=== PATIENT | male | born 1945 | race Caucasian/White ===

== ENCOUNTER 2016-08-25 14:15 | Observation (INO) | payer MEDICARE ==
--- NOTE | 2016-08-25 14:56 | Emergency Department Record ---
History of Present Illness - General Chief complaint: Dehydration Stated complaint: DEHYDRATED,BLOOD COUNT LOW Time Seen by Provider: 08/25/16 14:53 Source: Patient Mode of Arrival: Ambulatory Limitations: No limitations - History of Present Illness Initial comments: The patient is here due to being called at home and told to go to the ER due to a HGB of 2.9. The patient has had about a week of generalized weakness. He has been having some problems swallowing also but that has been chronic. The patient did have an UGI last week that did demonstrate a normal esophagus. He denies any CP, SOB, or EVELIA but states he does not have any energy. 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 After reviewing his lab work yesterday his HGB was actually 8.9 which was normal for him. Complaint: Generalized weakness Onset/Timin -: Days(s) Location: Generalized Severity: Moderate Severity scale (1-10): 6 Consistency: Constant Improves with: None Worsens with: None Associated Symptoms: Loss of appetite, Nausea/vomiting - Reading Coma Scale Eye Response: (4) Open spontaneously Motor Response: (6) Obeys commands Verbal Response: (5) Oriented Reading Total: 15 - Related Data Home Medications Medication Instructions Recorded Confirmed Last Taken Aspirin [Ecotrin] 81 mg PO DAILY 07/05/14 08/25/16 08/24/16 Insulin Detemir [Levemir Flexpen] 20 units SQ QHS 07/05/14 08/25/16 08/24/16 Levothyroxine Sodium [Synthroid] 150 mcg PO DAILY 07/05/14 08/25/16 08/24/16 Ramipril [Altace] 10 mg PO BID 07/05/14 08/25/16 08/24/16 Simvastatin [Zocor] 80 mg PO DAILY 07/05/14 08/25/16 08/24/16 Nitroglycerin [Nitrostat] 0.4 mg SL ASDIR PRN 12/01/14 08/25/16 08/24/16 Pantoprazole Sodium [Protonix] 40 mg PO DAILY 12/01/14 08/25/16 08/24/16 Clopidogrel Bisulfate [Plavix] 75 mg PO DAILY 07/31/15 08/25/16 08/24/16 Ferrous Sulfate 325 mg PO TID 07/31/15 08/25/16 08/24/16 Hydrocortisone [Anusol-Hc] 1 applic TOP ASDIR 05/06/16 08/25/16 08/24/16 Metformin HCl 500 mg PO BID 08/25/16 08/25/16 08/24/16 Metoprolol Tartrate 25 mg PO BID 08/25/16 08/25/16 08/24/16 Previous Rx's Medication Instructions Recorded Polyethylene Glycol 3350 [Miralax] 1 packet PO DAILY #30 packet 04/30/16 Allergies Allergy/AdvReac Type Severity Reaction Status Date / Time No Known Drug Allergies Allergy Verified 08/25/16 14:52 Travel Screening - Travel/Exposure Within Last 30 Days Have you traveled within the last 30 days?: No Past Medical History - SOCIAL HISTORY Smoking Status: Former smoker Alcohol Use: None Drug Use: None - RESPIRATORY Hx Respiratory Disorders: No Comment:: some SOB in past - CARDIOVASCULAR Hx Cardio Disorders: Yes Hx Cardiac Cath: Yes (4 cardiac stents) Hx Chest Pain: Yes Hx Deep Vein Thrombosis: Yes (8 stents in BLE) Hx Heart Attack: Yes Hx Hypertension: Yes - NEURO Hx Neuro Disorders: Yes Hx Dizziness: Yes Hx Headaches: Yes - GI Hx GI Disorders: Yes Hx Reflux: Yes Comment:: constipation - Hx Genitourinary Disorders: No - ENDOCRINE Hx Endocrine Disorders: Yes Hx Diabetes: Yes Hx Thyroid Disease: Yes - MUSCULOSKELETAL Hx Musculoskeletal Disorders: No - PSYCH Hx Psych Problems: No - HEMATOLOGY/ONCOLOGY Hx Hematology/Oncology Disorders: Yes Hx Anemia: Yes (sees a Sole Rounding Machine Operator) Hx Blood Transfusions: Yes Hx Blood Transfusion Reaction: No Family Medical History Any Significant Family History?: Yes Hx Cancer: Mother Hx Diabetes: Mother Hx Heart Disease: Mother Hx HTN: Mother Physical Exam - General General Appearance: Alert, Oriented x3, Cooperative, No acute distress - Head Head exam: Atraumatic, Normocephalic, Normal inspection - Eye Eye exam: PERRL, EOMI. negative: Normal appearance (Pale conjuctiva.), Conjunctival injection - ENT Throat exam: Normal inspection. negative: Tonsillar erythema, Tonsillar exudate - Neck Neck exam: Normal inspection, Full ROM. negative: Tenderness - Respiratory Respiratory exam: Normal lung sounds bilaterally. negative: Respiratory distress - Cardiovascular Cardiovascular Exam: Regular rate, Normal rhythm, Normal heart sounds - GI/Abdominal GI/Abdominal exam: Soft, Normal bowel sounds. negative: Tenderness - Extremities Extremities exam: Normal inspection, Full ROM, Normal capillary refill. negative: Tenderness - Neurological Neurological exam: Alert, Normal gait, Oriented X3. negative: Abnormal gait, Motor sensory deficit - Skin Skin exam: Pallor (Mild (chronic)) Course Vital Signs 08/25/16 14:46 Temperature 98.8 F Pulse Rate 90 Respiratory 22 Rate Blood Pressure 98/57 Pulse Ox 100 - Reevaluation(s) Reevaluation #1: The patient is resting comfortably. After reviewing his lab work it appears the neutropenia is chronic along with the anemia and the patient has had an extensive evaluation for it at [facility]. The anemia does appear to be worse at this time so I do believe the patient needs a transfusion. I did consult with his Sole Rounding Machine Operator Dr. Lozoya and he believes the patient can stay here at [facility] for the blood transfusion. I then discussed the case with Dr. Rico and she accepts the patient to the hospital. 08/25/16 17:16 08/25/16 17:53 Medical Decision Making - Data Complexity MDM Data: Labs Ordered and/or Reviewed, X-Ray Ordered and/or Reviewed, EKG Ordered and/or Reviewed - Lab Data Result diagrams: 08/25/16 15:09 08/25/16 15:09 - EKG Data -: EKG Interpreted by Me EKG: No Acute Changes, Unchanged From Previous - Radiology Data Radiology results: Report reviewed (CXR: COPD, no acute changes.) Disposition Disposition: Admit Clinical Impression: Anemia Decision to Admit: Admit from ER Decision to Admit Date: 08/25/16 Decision to Admit Time: 17:17 Accepting Physician: Trisha Time Discussed w/Accepting Physician: 17:18 Time of Disposition: 17:18
[2016-08-25 15:22] LABS: HEMATOCRIT 23.6 % (42.0-52.0); HEMOGLOBIN 7.6 gm/dl (14.0-18.0); MEAN CELL VOLUME 91.1 fl (81-97); MEAN CORPUSCULAR HEMOGLOBIN 29.3 pg (27-33); MEAN CORPUSCULAR HGB CONC 32.2 g/dl (32-36); MEAN PLATELET VOLUME 9.4 fl (7.4-10.4); PLATELET COUNT 224 K/uL (130-400); RED BLOOD COUNT 2.59 M/uL (4.40-5.70); RED CELL DISTRIBUTION WIDTH 15.3 % (11.5-14.5)
[2016-08-25 15:32] LABS: WHITE BLOOD COUNT W/O DIFF 0.8 K/uL (4.2-12.2)
[2016-08-25 15:34] LABS: INR 1.27; PROTHROMBIN TIME (PATIENT) 14.3 SECONDS (9.5-12.1)
[2016-08-25 15:41] LABS: ALB/GLOB RATIO 0.9 (1.1-1.8); ALBUMIN 3.1 gm/dL (3.5-5.0); ALKALINE PHOSPHATASE 73 U/L (38-126); ALT/SGPT 27 U/L (21-72); ANION GAP 9.6 (7-16); AST/SGOT 14 U/L (17-59); BILIRUBIN,TOTAL 1.61 mg/dL (0.2-1.3); BLOOD UREA NITROGEN 17 mg/dL (9-20); CARBON DIOXIDE 18.4 mmol/L (22-30); CREATINE PHOSPHOKINASE < 20 U/L (55-170); CREATININE 0.9 mg/dL (0.66-1.25); EST GLOMERULAR FILTRATION RATE > 60 ml/min; GLUCOSE,RANDOM 155 mg/dL (70-110); TOTAL PROTEIN 6.7 gm/dL (6.3-8.2)
[2016-08-25 15:51] LABS: CKMB 0.5 ug/L (0-6)
[2016-08-25 15:52] LABS: TROPONIN I < 0.012 ng/mL (0.00-0.034)
[2016-08-25 16:19] LABS: URINE APPEARANCE CLEAR; URINE BILIRUBIN SMALL (NEGATIVE); URINE BLOOD NEGATIVE (NEGATIVE); URINE COLOR YELLOW; URINE GLUCOSE (UA) NEGATIVE (NEGATIVE); URINE KETONE NEGATIVE (NEGATIVE); URINE LEUKOCYTE ESTERASE NEGATIVE (NEGATIVE); URINE NITRITE NEGATIVE (NEGATIVE)
[2016-08-25 17:59] LABS: ABO GROUP O; ANTIBODY SCREEN NEGATIVE (NEGATIVE); RH TYPE POSITIVE
[2016-08-25] MEDS ORDERED: NITROGLYCERIN 0.4MG SL TABLET #25 BTL SL PRN (18:21)
[2016-08-25] MEDS ORDERED: ACETAMINOPHEN 500 MG TABLET PO PRN (18:21)
[2016-08-25 20:21] LABS: IMMED. SPIN CROSSMATCH COMPATIBLE
[2016-08-25 20:22] LABS: IMMED. SPIN CROSSMATCH COMPATIBLE
[2016-08-25] MEDS ORDERED: LEVEMIR FLEXTOUCH 100 UNIT/ML INSULIN PEN SQ SCH (22:00)
[2016-08-25] MEDS ORDERED: SIMVASTATIN 20 MG TABLET PO SCH (22:00)
[2016-08-25] MEDS ORDERED: RAMIPRIL 10 MG PO SCH (22:00)
[2016-08-25] MEDS: METOPROLOL TART 25 MG TABLET PO SCH (22:45)
[2016-08-25] MEDS: METFORMIN 500 MG TABLET PO SCH (22:45)
[2016-08-25] MEDS: FERROUS SULFATE 325 MG TAB PO SCH (22:46)
[2016-08-26 06:13] LABS: HEMATOCRIT 30.6 % (42.0-52.0); HEMOGLOBIN 10.2 gm/dl (14.0-18.0); MEAN CELL VOLUME 89.7 fl (81-97); MEAN CORPUSCULAR HEMOGLOBIN 29.9 pg (27-33); MEAN CORPUSCULAR HGB CONC 33.3 g/dl (32-36); MEAN PLATELET VOLUME 9.3 fl (7.4-10.4); PLATELET COUNT 245 K/uL (130-400); RED BLOOD COUNT 3.41 M/uL (4.40-5.70); RED CELL DISTRIBUTION WIDTH 14.5 % (11.5-14.5)
[2016-08-26 06:24] LABS: ANION GAP 7.6 (7-16); BLOOD UREA NITROGEN 18 mg/dL (9-20); CARBON DIOXIDE 20.4 mmol/L (22-30); CREATININE 0.9 mg/dL (0.66-1.25); EST GLOMERULAR FILTRATION RATE > 60 ml/min; GLUCOSE,RANDOM 69 mg/dL (70-110); WHITE BLOOD COUNT W/O DIFF 0.8 K/uL (4.2-12.2)
[2016-08-26] MEDS: METFORMIN 500 MG TABLET PO SCH (09:41)
[2016-08-26] MEDS: METOPROLOL TART 25 MG TABLET PO SCH (09:42)
[2016-08-26] MEDS: FERROUS SULFATE 325 MG TAB PO SCH (09:42)
[2016-08-26] MEDS ORDERED: PANTOPRAZOLE SODIUM 40 MG TABLET PO SCH (10:00)
[2016-08-26] MEDS ORDERED: ASPIRIN 81 MG TABEC PO SCH (10:00)
[2016-08-26] MEDS ORDERED: LEVOTHYROXINE SODIUM 150 MCG TABLET PO SCH (10:00)
[2016-08-26] MEDS ORDERED: SIMVASTATIN 80 MG PO SCH (10:00)
[2016-08-26] MEDS ORDERED: CLOPIDOGREL 75MG TABLET PO SCH (10:00)
[2016-08-26] MEDS ORDERED: RAMIPRIL 2.5 MG CAPSULE PO SCH ×2 (10:00→10:15)
--- NOTE | 2016-08-26 13:39 | History & Physical ---
History of Present Illness - Date of Service Date of Service for History & Physical: 08/26/16 - History of Present Illness Admitting Diagnosis: 1. Symptomatic anemia. History of Present Illness: 71 yo M with past medical history of pancytopenia presents with concerns for his hemoglobin to ED yesterday The patient is here due to being called at home and told to go to the ER due to a HGB of 2.9. The patient has had about a week of generalized weakness. He has been having some problems swallowing also but that has been chronic. The patient did have an UGI last week that did demonstrate a normal esophagus. He denies any CP, SOB, or EVELIA but states he does not have any energy. 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 After reviewing his lab work yesterday his HGB was actually 8.9 which was normal for him. Hx of triple bypass, 8 DVT, HTN, [place] w/ 4 cardiac stents, headaches, GERD, constipation, Diabetes, hypothyroidism, former smoker (50 years, quit 2014). PCP: [place] Dental Hygienist: [facility] [place] Today his HB is 10.2 (from 7.6 yesterday) after 2 units of blood. He is feeling much better. Laboratory Tests 08/25/16 08/26/16 15:09 06:05 Hgb 7.6 L 10.2 L Travel Screening - Travel/Exposure Within Last 30 Days Have you traveled within the last 30 days?: No Past Medical History - SOCIAL HISTORY Smoking Status: Former smoker Alcohol Use: None Drug Use: None - RESPIRATORY Hx Respiratory Disorders: No Comment:: some SOB in past - CARDIOVASCULAR Hx Cardio Disorders: Yes Hx Cardiac Cath: Yes (4 cardiac stents) Hx Chest Pain: Yes Hx Deep Vein Thrombosis: Yes (8 stents in BLE) Hx Heart Attack: Yes Hx Hypertension: Yes - NEURO Hx Neuro Disorders: Yes Hx Dizziness: Yes Hx Headaches: Yes - GI Hx GI Disorders: Yes Hx Reflux: Yes Comment:: constipation - Hx Genitourinary Disorders: No - ENDOCRINE Hx Endocrine Disorders: Yes Hx Diabetes: Yes Hx Thyroid Disease: Yes - MUSCULOSKELETAL Hx Musculoskeletal Disorders: No - PSYCH Hx Psych Problems: No Comment:: frustrated with not knowing where his blood is going - HEMATOLOGY/ONCOLOGY Hx Hematology/Oncology Disorders: Yes Hx Anemia: Yes (sees a Dental Hygienist) Hx Blood Transfusions: Yes Hx Blood Transfusion Reaction: No Family Medical History Any Significant Family History?: Yes Hx Cancer: Mother Hx Diabetes: Mother Hx Heart Disease: Mother Hx HTN: Mother H&P Meds/Allergies - Allergies Allergies: Allergies Allergy/AdvReac Type Severity Reaction Status Date / Time No Known Drug Allergies Allergy Verified 08/25/16 14:52 - Home Medications Home Medications Medication Instructions Recorded Confirmed Last Taken Aspirin [Ecotrin] 81 mg PO DAILY 07/05/14 08/25/16 08/24/16 Insulin Detemir [Levemir Flexpen] 20 units SQ QHS 07/05/14 08/25/16 08/24/16 Levothyroxine Sodium [Synthroid] 150 mcg PO DAILY 07/05/14 08/25/16 08/24/16 Ramipril [Altace] 10 mg PO BID 07/05/14 08/25/16 08/24/16 Simvastatin [Zocor] 80 mg PO DAILY 07/05/14 08/25/16 08/24/16 Nitroglycerin [Nitrostat] 0.4 mg SL ASDIR PRN 12/01/14 08/25/16 08/24/16 Pantoprazole Sodium [Protonix] 40 mg PO DAILY 12/01/14 08/25/16 08/24/16 Clopidogrel Bisulfate [Plavix] 75 mg PO DAILY 07/31/15 08/25/16 08/24/16 Ferrous Sulfate 325 mg PO TID 07/31/15 08/25/16 08/24/16 Hydrocortisone [Anusol-Hc] 1 applic TOP ASDIR 05/06/16 08/25/16 08/24/16 Metformin HCl 500 mg PO BID 08/25/16 08/25/16 08/24/16 Metoprolol Tartrate 25 mg PO BID 08/25/16 08/25/16 08/24/16 Previous Rx's Medication Instructions Recorded Polyethylene Glycol 3350 [Miralax] 1 packet PO DAILY #30 packet 04/30/16 - Active Medications Active Medications: Current Medications Acetaminophen (Tylenol 500mg Tab) 500 mg PO Q6H PRN PRN Reason: PAIN/TEMP Aspirin (Ecotrin (Ec)) 81 mg PO DAILY [facility] Last Admin: 08/26/16 12:24 Dose: 81 mg Clopidogrel Bisulfate (Plavix) 75 mg PO DAILY [facility] Last Admin: 08/26/16 12:24 Dose: 75 mg Ferrous Sulfate (Iron) 325 mg PO TID [facility] Last Admin: 08/26/16 09:42 Dose: 325 mg Insulin Detemir (Levemir Flextouch) 20 unit SQ QHS [facility] Last Admin: 08/25/16 22:43 Dose: 20 unit Levothyroxine Sodium (Synthroid) 150 mcg PO DAILYTHY [facility] Last Admin: 08/26/16 12:27 Dose: Not Given Metformin HCl (Glucophage Ir) 500 mg PO BID [facility] Last Admin: 08/26/16 09:41 Dose: 500 mg Metoprolol Tartrate (Lopressor) 25 mg PO BID [facility] Last Admin: 08/26/16 09:42 Dose: 25 mg Nitroglycerin (Nitrostat 0.4mg) 0.4 mg SL Q5MIN PRN PRN Reason: Chest Pain [facility] Ramipril (Altace) 10 mg PO BID [facility] Last Admin: 08/26/16 12:25 Dose: 10 mg Simvastatin (Zocor) 80 mg PO QHS [facility] Last Admin: 08/25/16 22:46 Dose: 80 mg Physical Exam - Vital Signs Vital Signs: Vital Signs - Last 24 Hrs Temp Pulse Resp BP BP Pulse Ox 08/26/16 11:42 87 18 131/63 100 08/26/16 09:00 12 08/26/16 05:40 99.5 F 88 18 103/57 98 08/25/16 21:00 88 16 08/25/16 20:30 99.7 F H 08/25/16 18:21 100.6 F H 91 H 18 106/54 97 08/25/16 18:01 100.6 F H 91 H 106/54 97 - General General Appearance: Alert, Oriented x3, Cooperative, No acute distress, Other ( cachectic) Limitations: No limitations - Head Head exam: Atraumatic, Normocephalic, Normal inspection - Eye Eye exam: PERRL, EOMI. negative: Normal appearance (Pale conjuctiva.), Conjunctival injection - ENT Throat exam: Normal inspection. negative: Tonsillar erythema, Tonsillar exudate - Neck Neck exam: Normal inspection, Full ROM. negative: Tenderness - Respiratory Respiratory exam: Normal lung sounds bilaterally. negative: Respiratory distress - Cardiovascular Cardiovascular Exam: Regular rate, Normal rhythm, Normal heart sounds - GI/Abdominal GI/Abdominal exam: Soft, Normal bowel sounds. negative: Tenderness - Extremities Extremities exam: Normal inspection, Full ROM, Normal capillary refill. negative: Tenderness - Neurological Neurological exam: Alert, Normal gait, Oriented X3. negative: Abnormal gait, Motor sensory deficit Results - Labs Result Diagrams: 08/26/16 06:05 08/26/16 06:05 Labs Last 24 Hours: Laboratory Results - last 24 hr 08/25/16 08/26/16 08/26/16 21:14 06:05 06:05 WBC 0.8 L* RBC 3.41 L Hgb 10.2 L Hct 30.6 L MCV 89.7 MCH 29.9 MCHC 33.3 RDW 14.5 Plt Count 245 MPV 9.3 Gran % Heel Attacher Neutrophils % 7.0 L Band Neutrophils % 2.0 Lymphocytes % 90.0 H Monocytes % 1.0 Eosinophils % 0.0 Basophils % 0.0 Sodium 127 L Potassium 4.3 Chloride 99 Carbon Dioxide 20.4 L Anion Gap 7.6 BUN 18 Creatinine 0.9 Estimated GFR > 60 POC Glucose 213 H Random Glucose 69 L Calcium 8.4 L 08/26/16 08/26/16 07:42 11:42 WBC RBC Hgb Hct MCV MCH MCHC RDW Plt Count MPV Gran % Neutrophils % Band Neutrophils % Lymphocytes % Monocytes % Eosinophils % Basophils % Sodium Potassium Chloride Carbon Dioxide Anion Gap BUN Creatinine Estimated GFR POC Glucose 62 L 80 Random Glucose Calcium VTE H&P Assessment - Risk for VTE Risk for VTE: Yes Risk Level: High Risk Assessment Date: 08/26/16 Risk Assessment Time: 13:50 VTE Orders Placed or Will Be Placed: No VTE Reason for No Prophylaxis: Not Indicated (discharge today) Plan - Detailed Diagnosis and Plan (1) Anemia Current Visit: Yes Status: Chronic Qualifiers: Other causes of anemia: antineoplastic chemotherapy Base Code: D64.9 - ANEMIA, UNSPECIFIED Priority: High Comment: 08/26/15- transfused two units of blood and patient feeling much better, plan to follow up with web interface developer/oncologist about pancytopenia
--- NOTE | 2016-08-26 13:56 | Discharge Summary ---
Providers Discharge Summary Date: 08/26/16 Date of admission: 08/25/16 17:45 Expected Date of Discharge: 08/26/16 Attending physician: ISABELA ARMSTRONG Primary care physician: LUCAS SNIDER D.O. Physical Exam - Vital Signs Vital Signs: Vital Signs - Last 24 Hrs Temp Pulse Resp BP BP Pulse Ox 08/26/16 11:42 87 18 131/63 100 08/26/16 09:00 12 08/26/16 05:40 99.5 F 88 18 103/57 98 08/25/16 21:00 88 16 08/25/16 20:30 99.7 F H 08/25/16 18:21 100.6 F H 91 H 18 106/54 97 08/25/16 18:01 100.6 F H 91 H 106/54 97 - General General Appearance: Alert, Oriented x3, Cooperative, No acute distress, Other ( cachectic) Limitations: No limitations - Head Head exam: Atraumatic, Normocephalic, Normal inspection - Eye Eye exam: PERRL, EOMI. negative: Normal appearance (Pale conjuctiva.), Conjunctival injection - ENT Throat exam: Normal inspection. negative: Tonsillar erythema, Tonsillar exudate - Neck Neck exam: Normal inspection, Full ROM. negative: Tenderness - Respiratory Respiratory exam: Normal lung sounds bilaterally. negative: Respiratory distress - Cardiovascular Cardiovascular Exam: Regular rate, Normal rhythm, Normal heart sounds - GI/Abdominal GI/Abdominal exam: Soft, Normal bowel sounds. negative: Tenderness - Extremities Extremities exam: Normal inspection, Full ROM, Normal capillary refill. negative: Tenderness - Neurological Neurological exam: Alert, Normal gait, Oriented X3. negative: Abnormal gait, Motor sensory deficit - Skin Skin exam: Pallor (Mild (chronic)) Hospitalization - Hospitalization Admission Diagnosis: 1. Symptomatic anemia. - Problem List/Discharge Diagnosis (1) Anemia Current Visit: Yes Status: Chronic Discharge Diagnosis: Other causes of anemia: antineoplastic chemotherapy Base Code: D64.9 - ANEMIA, UNSPECIFIED Comment: 08/26/15- admitted for observation to allow for transfusion of two units of blood and patient feeling much better, plan to follow up with plastic surgery specialist/oncologist about pancytopenia - Hospitalization Course Disposition: Home, Self-Care Hospital Course: 71 yo M with past medical history of pancytopenia presents with concerns for his hemoglobin to ED yesterday The patient is here due to being called at home and told to go to the ER due to a HGB of 2.9. The patient has had about a week of generalized weakness. He has been having some problems swallowing also but that has been chronic. The patient did have an UGI last week that did demonstrate a normal esophagus. He denies any CP, SOB, or EVELIA but states he does not have any energy. 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 After reviewing his lab work yesterday his HGB was actually 8.9 which was normal for him. Hx of triple bypass, 8 DVT, HTN, [place] w/ 4 cardiac stents, headaches, GERD, constipation, Diabetes, hypothyroidism, former smoker (50 years, quit 2014). PCP: [place] Direct Support Staff: [facility] Today his HB is 10.2 (from 7.6 yesterday) after 2 units of blood. He is feeling much better. Laboratory Tests 08/25/16 08/26/16 15:09 06:05 Hgb 7.6 L 10.2 L Abnormal Labs: Abnormal Lab Results 08/25/16 08/26/16 08/26/16 Range/Units 21:14 06:05 06:05 WBC 0.8 L* (4.2-12.2) K/uL RBC 3.41 L (4.40-5.70) M/uL Hgb 10.2 L (14.0-18.0) gm/dl Hct 30.6 L (42.0-52.0) % Neutrophils % 7.0 L (47-80) % Lymphocytes % 90.0 H (16-45) % Sodium 127 L (136-145) mmol/L Carbon Dioxide 20.4 L (22-30) mmol/L POC Glucose 213 H (70-110) mg/dL Random Glucose 69 L (70-110) mg/dL Calcium 8.4 L (8.5-10.1) mg/dL 08/26/16 Range/Units 07:42 WBC (4.2-12.2) K/uL RBC (4.40-5.70) M/uL Hgb (14.0-18.0) gm/dl Hct (42.0-52.0) % Neutrophils % (47-80) % Lymphocytes % (16-45) % Sodium (136-145) mmol/L Carbon Dioxide (22-30) mmol/L POC Glucose 62 L (70-110) mg/dL Random Glucose (70-110) mg/dL Calcium (8.5-10.1) mg/dL Discharge Medications - Discharge Medications Home Medications: Ambulatory Orders Aspirin [Ecotrin] 81 mg PO DAILY 07/05/14 [Last Taken 08/24/16] Insulin Detemir [Levemir Flexpen] 20 units SQ QHS 07/05/14 [Last Taken 08/24/16] Levothyroxine Sodium [Synthroid] 150 mcg PO DAILY 07/05/14 [Last Taken 08/24/16] Ramipril [Altace] 10 mg PO BID 07/05/14 [Last Taken 08/24/16] Simvastatin [Zocor] 80 mg PO DAILY 07/05/14 [Last Taken 08/24/16] Nitroglycerin [Nitrostat] 0.4 mg SL ASDIR PRN 12/01/14 [Last Taken 08/24/16] Pantoprazole Sodium [Protonix] 40 mg PO DAILY 12/01/14 [Last Taken 08/24/16] Clopidogrel Bisulfate [Plavix] 75 mg PO DAILY 07/31/15 [Last Taken 08/24/16] Ferrous Sulfate 325 mg PO TID 07/31/15 [Last Taken 08/24/16] Polyethylene Glycol 3350 [Miralax] 1 packet PO DAILY #30 packet 04/30/16 [Last Taken 08/24/16] Hydrocortisone [Anusol-Hc] 1 applic TOP ASDIR 05/06/16 [Last Taken 08/24/16] Metformin HCl 500 mg PO BID 08/25/16 [Last Taken 08/24/16] Metoprolol Tartrate 25 mg PO BID 08/25/16 [Last Taken 08/24/16] Acetaminophen [Tylenol 500Mg Tab] 500 mg PO Q6H PRN #0 tablet 08/26/16 [Last Taken Unknown] Ramipril [Altace] 10 mg PO BID capsule 08/26/16 [Last Taken Unknown] Simvastatin [Zocor] 80 mg PO QHS tablet 08/26/16 [Last Taken Unknown] Discharge Plan - Discharge Instructions Activity at Discharge: Increase Activity as Tolerated Diet at Discharge: Diabetic Diet
--- NOTE | 2016-08-28 07:41 | RADIOLOGY REPORT ---
EXAM: CHEST, TWO VIEWS HISTORY: ACUTE SHORTNESS OF BREATH. TECHNIQUE: Two views of the chest were provided along with the comparison study dated 07/15/14. FINDINGS: The cardiomediastinal silhouette is within normal limits for size and contour. The keli appear unremarkable. Calcified left hilar lymph nodes are again noted. Post sternotomy changes are identified. COPD changes are again noted. IMPRESSION: COPD CHANGES ARE IDENTIFIED. NO RADIOGRAPHIC EVIDENCE OF AN ACUTE INTRATHORACIC PROCESS. JOB NUMBER: [id number] [facility]
== END 2016-08-26 14:13 | disposition home or self-care (01) ==
LOC: ER 14:15 → MEDSURG 17:45
PROVIDERS: ADMIT Family Medicine; ATTEND Family Medicine
DX: D64.81 Anemia due to antineoplastic chemotherapy (principal); E11.9 Type 2 diabetes mellitus without complications; I10 Essential (primary) hypertension; E03.9 Hypothyroidism, unspecified
CPT/HCPCS: 99285 ×2; 82550; 85730; 85610; 82553; 84484; 80048; 80053; 36416 ×2; 82948 ×2; 81003; 84443; 85027 ×2; 86900; 86901; 86850; 71020; 93005; 93010; 36430; G0378 ×2; P9016; J3490; J1815; 99220

== ENCOUNTER 2016-10-07 17:53 | Emergency (ER) | payer MEDICARE ==
--- NOTE | 2016-10-07 18:27 | Emergency Department Record ---
History of Present Illness - General Chief complaint: Swelling of legs Stated complaint: SWELLING OF LOWER EXETRMITIES Time Seen by Provider: 10/07/16 18:05 Source: Patient Mode of Arrival: Ambulatory Limitations: No limitations - History of Present Illness Initial comments: 71 yo male presents to ED with a CC of lower extremity swelling bilaterally extending up to the groin region. Patient reports that he is unable to retract his foreskin to properly urinate. Patient reports that he was recently released from [facility] following an 8-day hospitalization for "bone marrow failure", and has been receiving (2) injections weekly (neupogen and procrit). Patient denies any fevers, chills, or recent illness symptoms. Patient denies history of CHF, thought does report previous bypass surgery and CAD. MD Complaint: Extremity swelling Onset/Timin -: Days(s) Location: Left, Right, Lower Leg, Other History of Same: No Improves with: Nothing Worsens with: Nothing Associated Symptoms: Denies other symptoms - Related Data Home Medications Medication Instructions Recorded Confirmed Last Taken Aspirin [Ecotrin] 81 mg PO DAILY 07/05/14 10/07/16 10/07/16 Insulin Detemir [Levemir Flexpen] 20 units SQ QHS 07/05/14 10/07/16 10/07/16 Levothyroxine Sodium [Synthroid] 150 mcg PO DAILY 07/05/14 10/07/16 10/07/16 Nitroglycerin [Nitrostat] 0.4 mg SL ASDIR PRN 12/01/14 10/07/16 10/07/16 Pantoprazole Sodium [Protonix] 40 mg PO DAILY 12/01/14 10/07/16 10/07/16 Clopidogrel Bisulfate [Plavix] 75 mg PO DAILY 07/31/15 10/07/16 10/07/16 Ferrous Sulfate 325 mg PO TID 07/31/15 10/07/16 10/07/16 Metoprolol Tartrate 25 mg PO BID 08/25/16 10/07/16 10/07/16 Previous Rx's Medication Instructions Recorded Polyethylene Glycol 3350 [Miralax] 1 packet PO DAILY #30 packet 04/30/16 Acetaminophen [Tylenol 500Mg Tab] 500 mg PO Q6H PRN #0 tablet 08/26/16 Ramipril [Altace] 10 mg PO BID capsule 08/26/16 Simvastatin [Zocor] 80 mg PO QHS tablet 08/26/16 Cephalexin [Keflex] 500 mg PO QID #27 cap 10/07/16 Furosemide [Lasix] 20 mg PO DAILY #20 tablet 10/07/16 Allergies Allergy/AdvReac Type Severity Reaction Status Date / Time No Known Drug Allergies Allergy Verified 10/07/16 17:58 Travel Screening - Travel/Exposure Within Last 30 Days Have you traveled within the last 30 days?: No - Travel/Exposure Within Last Year Have you traveled outside the [place] in the last year?: No - Additonal Travel Details Have you been exposed to anyone with a communicable illness?: No - Travel Symptoms Symptom Screening: None Review of Systems Constitutional: Denies: Chills, Fever, Malaise, Night sweats Eyes: Denies: Eye discharge, Eye pain ENT: Denies: Congestion, Ear pain, Epistaxis Respiratory: Denies: Cough, Dyspnea Cardiovascular: Reports: Edema. Denies: Chest pain, Dyspnea on exertion, Palpitations Endocrine: Denies: Fatigue, Heat or cold intolerance Gastrointestinal: Denies: Abdominal pain, Nausea, Vomiting Genitourinary: Reports: Other (penile/scrotal swelling). Denies: Hematuria, Incontinence, Retention Musculoskeletal: Denies: Arthralgia, Back pain, Gout, Joint swelling Skin: Denies: Bruising, Change in color Neurological: Denies: Abnormal gait, Confusion, Headache, Tingling Psychiatric: Denies: Anxiety Hematological/Lymphatic: Denies: Anemia, Blood Clots Past Medical History - SOCIAL HISTORY Smoking Status: Former smoker Alcohol Use: None Drug Use: None - RESPIRATORY Hx Respiratory Disorders: No Comment:: some SOB in past - CARDIOVASCULAR Hx Cardio Disorders: Yes Hx Cardiac Cath: Yes (4 cardiac stents) Hx Chest Pain: Yes Hx Deep Vein Thrombosis: Yes (8 stents in BLE) Hx Heart Attack: Yes Hx Hypertension: Yes - NEURO Hx Neuro Disorders: Yes Hx Dizziness: Yes Hx Headaches: Yes - GI Hx GI Disorders: Yes Hx Reflux: Yes Comment:: constipation - Hx Genitourinary Disorders: No - ENDOCRINE Hx Endocrine Disorders: Yes Hx Diabetes: Yes Hx Thyroid Disease: Yes - MUSCULOSKELETAL Hx Musculoskeletal Disorders: No - PSYCH Hx Psych Problems: No Comment:: frustrated with not knowing where his blood is going - HEMATOLOGY/ONCOLOGY Hx Hematology/Oncology Disorders: Yes 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 negative: Conjunctival injection, Periorbital swelling, Periorbital tenderness, Scleral icterus - ENT Ear exam: negative: Auricular hematoma, Auricular trauma Nasal Exam: negative: Active bleeding, Discharge, Dried blood, Foreign body, Sinus tenderness Mouth exam: negative: Drooling, Laceration, Muffled voice, Tongue elevation - Neck Neck exam: Normal inspection. negative: Meningismus, Tenderness - Respiratory Respiratory exam: Normal lung sounds bilaterally. negative: Respiratory distress, Rhonchi, Stridor, Wheezes - Cardiovascular Cardiovascular Exam: Regular rate, Normal rhythm, Normal heart sounds - GI/Abdominal GI/Abdominal exam: Soft. negative: Pulsatile mass, Rebound, Rigid, Tenderness - Rectal Rectal exam: Deferred - exam: Scrotal swelling, Other (penile edema). negative: Testicular tenderness - Extremities Extremities exam: Pedal edema. negative: Calf tenderness, Tenderness - Back Back exam: Denies: CVA tenderness (R), CVA tenderness (L) - Neurological Neurological exam: Alert, Normal gait, Oriented X3 - Psychiatric Psychiatric exam: Normal affect, Normal mood - Skin Skin exam: Normal color. negative: Abrasion Type of lesion: negative: abrasion Course Vital Signs 10/07/16 18:03 Temperature 98.4 F Pulse Rate 90 Respiratory 18 Rate Blood Pressure 149/74 Pulse Ox 98 - Reevaluation(s) Reevaluation #1: 10/07/16 19:09 Labs reviewed, Hgb 8.7, WBC 1.0. Platelets 268. Albumin 2.9. Labs reviewed from 09/17/16, WBC 1.0, Hgb 7.1, platelets 84K, Albumin 2.2. Labs have improved from previous. Will consult with the patient's reflow operator for further disposition. Reevaluation #2: 10/07/16 19:42 Case was discussed with Dr. Amaya (patient's oncologist), will defer to Dr. Penaloza however low-dose lasix and cooney catheterization seems very reasonable per his oncologist. Reevaluation #3: 10/07/16 19:46 Case was discussed with Dr. Penaloza, he is also in agreement with the plan for cooney catheterization and low-dose Lasix with instructions for follow-up in 3-[address] Penaloza. Patient and his SO are also in agreement with the plan of care as discussed. Medical Decision Making - Lab Data Result diagrams: 10/07/16 18:20 10/07/16 18:20 Disposition Disposition: Discharge Clinical Impression: Urinary retention, Bilateral lower extremity edema, Myelodysplastic syndrome, Pancytopenia UTI (urinary tract infection) Qualifiers: Urinary tract infection type: acute cystitis Hematuria presence: without hematuria Qualified Code(s): N30.00 - Acute cystitis without hematuria Disposition: Home, Self-Care Condition: (2) Stable Instructions: Leg Edema (ED) Additional Instructions: Return to ED if your symptoms worsen or if you have any concerns. Follow-up with Dr. Penaloza in 3-5 days as directed. Leave catheter in place until seen by Dr. Penaloza. Lasix as directed. Prescriptions: Cephalexin [Keflex] 500 mg PO QID #27 cap Furosemide [Lasix] 20 mg PO DAILY #20 tablet Forms: Patient Portal Access Time of Disposition: 19:50
[2016-10-07 18:34] LABS: HEMATOCRIT 26.3 % (42.0-52.0); HEMOGLOBIN 8.7 gm/dl (14.0-18.0); MEAN CELL VOLUME 96.7 fl (81-97); MEAN CORPUSCULAR HGB CONC 33.1 g/dl (32-36); MEAN PLATELET VOLUME 8.8 fl (7.4-10.4); PLATELET COUNT 268 K/uL (130-400); RED BLOOD COUNT 2.72 M/uL (4.40-5.70); RED CELL DISTRIBUTION WIDTH 22.7 % (11.5-14.5)
[2016-10-07 18:36] LABS: MEAN CORPUSCULAR HEMOGLOBIN 31.9 pg (27-33)
[2016-10-07 18:48] LABS: ALB/GLOB RATIO 0.8 (1.1-1.8); ALBUMIN 2.9 gm/dL (3.5-5.0); ALKALINE PHOSPHATASE 106 U/L (38-126); ALT/SGPT 21 U/L (21-72); ANION GAP 11.4 (7-16); AST/SGOT 16 U/L (17-59); BILIRUBIN,TOTAL 0.96 mg/dL (0.2-1.3); BLOOD UREA NITROGEN 11 mg/dL (9-20); CARBON DIOXIDE 24.6 mmol/L (22-30); CREATININE 0.9 mg/dL (0.66-1.25); EST GLOMERULAR FILTRATION RATE > 60 ml/min; GLUCOSE,RANDOM 162 mg/dL (70-110); TOTAL PROTEIN 6.6 gm/dL (6.3-8.2)
[2016-10-07 19:06] LABS: ANISOCYTOSIS 1+; HYPOCHROMIA 2+; MICROCYTOSIS 2+
[2016-10-07] MEDS ORDERED: FUROSEMIDE 20 MG TABLET PO ONE (19:45)
[2016-10-07 20:13] LABS: URINE APPEARANCE CLEAR; URINE BILIRUBIN SMALL (NEGATIVE); URINE BLOOD NEGATIVE (NEGATIVE); URINE COLOR YELLOW; URINE GLUCOSE (UA) NEGATIVE (NEGATIVE); URINE KETONE NEGATIVE (NEGATIVE); URINE LEUKOCYTE ESTERASE NEGATIVE (NEGATIVE); URINE NITRITE NEGATIVE (NEGATIVE)
[2016-10-07 20:26] LABS: URINE BACTERIA 3+
[2016-10-07 20:27] LABS: URINE MUCUS HEAVY
[2016-10-07] MEDS ORDERED: CEPHALEXIN 500 MG CAPSULE PO STA (20:30)
== END 2016-10-07 20:50 | disposition home or self-care (01) ==
LOC: ER 17:53
DX: N30.00 Acute cystitis without hematuria (principal); R33.9 Retention of urine, unspecified; R60.0 Localized edema; D61.818 Other pancytopenia; D46.9 Myelodysplastic syndrome, unspecified; I10 Essential (primary) hypertension; I25.2 Old myocardial infarction; I50.9 Heart failure, unspecified; Z87.891 Personal history of nicotine dependence
CPT/HCPCS: 80053; 81001; 83880; 85027; 99283; 99284

== ENCOUNTER 2016-10-22 14:21 | Emergency (ER) | payer MEDICARE ==
--- NOTE | 2016-10-22 15:02 | Emergency Department Record ---
History of Present Illness - General Chief complaint: Weakness Stated complaint: LOW BLOOD Time Seen by Provider: 10/22/16 14:56 Source: Patient, Family Mode of Arrival: Wheelchair Limitations: Other (sleepy) - History of Present Illness Initial comments: 71 yo male with myelodysplastic syndrome presents today with weakness, tired, sleepy, unable to ambulate at his baseline due to weakness. No fever. No falls. He has a long standing history of anemia and low WBC counts. No appetite today. He denies any pain. No chest pain or shortness of breath. No nausea, vomiting or diarrhea. MD Complaint: Generalized weakness Onset/Timin -: Days(s) Location: Generalized Consistency: Constant Improves with: None Worsens with: None Associated Symptoms: Denies other symptoms - Primrose Coma Scale Eye Response: (4) Open spontaneously Motor Response: (6) Obeys commands Verbal Response: (5) Oriented Mamta Total: 15 - Related Data Home Medications Medication Instructions Recorded Confirmed Last Taken Aspirin [Ecotrin] 81 mg PO DAILY 07/05/14 10/22/16 10/07/16 Insulin Detemir [Levemir Flexpen] 20 units SQ QHS 07/05/14 10/22/16 10/07/16 Levothyroxine Sodium [Synthroid] 150 mcg PO DAILY 07/05/14 10/22/16 10/07/16 Nitroglycerin [Nitrostat] 0.4 mg SL ASDIR PRN 12/01/14 10/22/16 10/07/16 Pantoprazole Sodium [Protonix] 40 mg PO DAILY 12/01/14 10/22/16 10/07/16 Clopidogrel Bisulfate [Plavix] 75 mg PO DAILY 07/31/15 10/22/16 10/07/16 Ferrous Sulfate 325 mg PO TID 07/31/15 10/22/16 10/07/16 Metoprolol Tartrate 25 mg PO BID 08/25/16 10/22/16 10/07/16 Previous Rx's Medication Instructions Recorded Polyethylene Glycol 3350 [Miralax] 1 packet PO DAILY #30 packet 04/30/16 Acetaminophen [Tylenol 500Mg Tab] 500 mg PO Q6H PRN #0 tablet 08/26/16 Ramipril [Altace] 10 mg PO BID capsule 08/26/16 Simvastatin [Zocor] 80 mg PO QHS tablet 08/26/16 Allergies Allergy/AdvReac Type Severity Reaction Status Date / Time No Known Drug Allergies Allergy Verified 10/07/16 17:58 Travel Screening - Travel/Exposure Within Last 30 Days Have you traveled within the last 30 days?: No Review of Systems Constitutional: Reports: Malaise, Weakness. Denies: Chills, Fever Eyes: Denies: Eye discharge, Eye pain, Photophobia, Vision change ENT: Reports: Throat pain. Denies: Congestion Respiratory: Denies: Cough, Dyspnea, Hemoptysis, Stridor, Wheezes Cardiovascular: Denies: Chest pain, Palpitations, Syncope Endocrine: Reports: Fatigue. Denies: Polydipsia, Polyuria Gastrointestinal: Denies: Abdominal pain, Diarrhea, Nausea, Vomiting Genitourinary: Denies: Dysuria, Frequency, Hematuria, Urgency Musculoskeletal: Denies: Arthralgia, Back pain, Joint swelling, Myalgia Skin: Denies: Bruising, Change in color, Rash Neurological: Reports: Weakness. Denies: Confusion, Headache, Numbness, Seizure , Tingling, Tremors, Vertigo Psychiatric: Denies: Anxiety Hematological/Lymphatic: Denies: Blood Clots, Easy bleeding, Easy bruising, Swollen glands Past Medical History - SOCIAL HISTORY Smoking Status: Former smoker - RESPIRATORY Hx Respiratory Disorders: No Comment:: some SOB in past - CARDIOVASCULAR Hx Cardio Disorders: Yes Hx Cardiac Cath: Yes (4 cardiac stents) Hx Chest Pain: Yes Hx Deep Vein Thrombosis: Yes (8 stents in BLE) Hx Heart Attack: Yes Hx Hypertension: Yes - NEURO Hx Neuro Disorders: Yes Hx Dizziness: Yes Hx Headaches: Yes - GI Hx GI Disorders: Yes Hx Reflux: Yes Comment:: constipation - Hx Genitourinary Disorders: No - ENDOCRINE Hx Endocrine Disorders: Yes Hx Diabetes: Yes Hx Thyroid Disease: Yes - MUSCULOSKELETAL Hx Musculoskeletal Disorders: No - PSYCH Hx Psych Problems: No Comment:: frustrated with not knowing where his blood is going - HEMATOLOGY/ONCOLOGY Hx Hematology/Oncology Disorders: Yes 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 negative: Conjunctival injection, Periorbital swelling, Scleral icterus - ENT ENT exam: Normal exam, Mucous membranes moist Ear exam: Normal external inspection. negative: External canal tenderness Nasal Exam: Normal inspection. negative: Discharge, Sinus tenderness Mouth exam: Normal external inspection, Tongue normal Teeth exam: Normal inspection. negative: Dental caries Throat exam: Tonsillar erythema - Neck Neck exam: Normal inspection, Full ROM. negative: Lymphadenopathy, Tenderness - Respiratory Respiratory exam: Normal lung sounds bilaterally. negative: Respiratory distress, Rhonchi, Stridor, Wheezes - Cardiovascular Cardiovascular Exam: Tachycardia. negative: Regular rate, Normal rhythm, Normal heart sounds - GI/Abdominal GI/Abdominal exam: Soft. negative: Distended, Tenderness - Rectal Rectal exam: Deferred - exam: Deferred - Extremities Extremities exam: Normal inspection, Full ROM, Normal capillary refill. negative: Pedal edema, Tenderness - Back Back exam: Reports: Normal inspection, Full ROM. Denies: Muscle spasm, Rash noted, Tenderness - Neurological Neurological exam: Alert, Normal gait, Oriented X3, Reflexes normal - Psychiatric Psychiatric exam: Flat affect - Skin Skin exam: Dry, Intact, Normal color, Warm Course Vital Signs 10/22/16 14:34 Temperature 103.0 F H Pulse Rate 124 H Respiratory 32 H Rate Blood Pressure 180/77 Pulse Ox 99 - Reevaluation(s) Reevaluation #1: Temp noted to be 103. 10/22/16 15:03 Reevaluation #2: the CBC was fully reported WBC is 0.7 with 41%N and 15% bands HGB is 7.6 which is unchanged from 10/18/16 Influenza is negative CXR demonstrated questionable atelectasis and less likely infiltrate LLL 10/22/16 16:47 Reevaluation #3: UA is negative for acute infection 10/22/16 17:59 Reevaluation #4: EKG 1824 sinus tach, rbbb, axis left, QTc 547 (prior 491), ST NS changes CW BBB. Comparison on 08/25/16 RBBB as well. 10/22/16 18:39 - Consultations Consultation #1: I JOHN Walker of [facility] He accepts the patient for transfer to [facility] [place] further evaluation and care Medical Decision Making - Lab Data Result diagrams: 10/22/16 14:55 10/22/16 14:54 Disposition Disposition: Transfer Clinical Impression: Neutropenic fever, Hyponatremia, Myelodysplastic syndrome, Pancytopenia Anemia Qualifiers: Other causes of anemia: antineoplastic chemotherapy Disposition: Acute Care Hospital Transfer Transfer To: [facility] Reason For Transfer: Neutropenic fever Accepting Physician: Aaron Time Discussed w/Accepting Physician: 18:18 Condition: (1) Good Forms: Patient Portal Access Time of Disposition: 18:18
[2016-10-22] MEDS ORDERED: ACETAMINOPHEN 500 MG TABLET PO ONE (15:03)
[2016-10-22] MEDS ORDERED: 0.9 % SODIUM CHLORIDE 1,000 ML BAG IV ONE (15:03)
[2016-10-22 15:44] LABS: HEMATOCRIT 24.2 % (42.0-52.0); HEMOGLOBIN 7.6 gm/dl (14.0-18.0); MEAN CELL VOLUME 104.3 fl (81-97); MEAN CORPUSCULAR HGB CONC 31.4 g/dl (32-36); MEAN PLATELET VOLUME 8.8 fl (7.4-10.4); PLATELET COUNT 186 K/uL (130-400); RED BLOOD COUNT 2.32 M/uL (4.40-5.70); RED CELL DISTRIBUTION WIDTH 18.6 % (11.5-14.5)
[2016-10-22 16:05] LABS: MEAN CORPUSCULAR HEMOGLOBIN 32.7 pg (27-33); WHITE BLOOD COUNT W/O DIFF 0.7 K/uL (4.2-12.2)
[2016-10-22 16:22] LABS: PLATELET ESTIMATE NORMAL (NORMAL)
[2016-10-22 16:24] LABS: ANISOCYTOSIS 2+
[2016-10-22 16:40] LABS: INFLUENZA A NEGATIVE (NEGATIVE); INFLUENZA B NEGATIVE (NEGATIVE)
[2016-10-22] MEDS ORDERED: CEFEPIME HCL 2 GM in 0.9 % SODIUM CHLORIDE 100ML 100 ML IVPB ONE (17:37)
[2016-10-22 17:45] LABS: INR 1.19; PARTIAL THROMBOPLASTIN TIME 36.3 SECONDS (24.5-39.1); PROTHROMBIN TIME (PATIENT) 13.4 SECONDS (9.5-12.1)
[2016-10-22 17:50] LABS: URINE APPEARANCE CLEAR; URINE BILIRUBIN NEGATIVE (NEGATIVE); URINE BLOOD SMALL (NEGATIVE); URINE COLOR YELLOW; URINE GLUCOSE (UA) NEGATIVE (NEGATIVE); URINE KETONE NEGATIVE (NEGATIVE); URINE LEUKOCYTE ESTERASE NEGATIVE (NEGATIVE); URINE NITRITE NEGATIVE (NEGATIVE)
[2016-10-22 17:53] LABS: URINE BACTERIA NONE SEEN; URINE EPITHELIAL CELLS 0 - 2 (FEW); URINE PROTEIN 300 mg/dL (NEGATIVE); URINE RBC 0 - 2 (NONE SEEN); URINE WBC 0 - 2 (0-2/hpf)
[2016-10-22 17:57] LABS: LACTIC ACID 2.1 mmol/L (0.7-2.1)
[2016-10-22] MEDS ORDERED: LEVOFLOXACIN/D5W 750 MG in DEXTROSE 1 BAG IVPB ONE (18:02)
[2016-10-22] MEDS ORDERED: PIPERACILLIN SODIUM/TAZOBACTAM 4.5 GM in 0.9 % SODIUM CHLORIDE 100ML 100 ML IVPB ONE (18:02)
[2016-10-22 18:27] LABS: ABO GROUP O; ANTIBODY SCREEN NEGATIVE (NEGATIVE); RH TYPE POSITIVE
[2016-10-22] MEDS ORDERED: POTASSIUM CHLORIDE 20 MEQ TABLET PO ONE (18:27)
[2016-10-22] MEDS ORDERED: METOPROLOL TART 25 MG TABLET PO ONE (19:17)
== END 2016-10-22 21:13 | disposition short-term general hospital (02) ==
LOC: ER 14:21
DX: D61.810 Antineoplastic chemotherapy induced pancytopenia (principal); D61.1 Drug-induced aplastic anemia; D46.9 Myelodysplastic syndrome, unspecified; D70.9 Neutropenia, unspecified; R50.81 Fever presenting with conditions classified elsewhere; T45.1X5A Adverse effect of antineoplastic and immunosuppressive drugs, initial encounter; E87.1 Hypo-osmolality and hyponatremia; D49.9 Neoplasm of unspecified behavior of unspecified site; Z79.4 Long term (current) use of insulin; I10 Essential (primary) hypertension; I25.2 Old myocardial infarction; Z87.891 Personal history of nicotine dependence
CPT/HCPCS: 96372; 99285 ×2; 83605; 85730; 85610; 80053; 81001; 87880; 87400; 85027; 86900; 86901; 86850; 71010; 93005; 93010; J1956; J2543; J7030

== ENCOUNTER 2017-02-06 19:40 | Emergency (ER) | payer MEDICARE ==
[2017-02-06 20:17] LABS: BASO % 0.2 % (0-6); GRAN % 76.4 % (47-80); HEMATOCRIT 31.4 % (42.0-52.0); LYMPH % 15.2 % (16-45); MEAN CELL VOLUME 96.6 fl (81-97); MEAN CORPUSCULAR HGB CONC 31.8 g/dl (32-36); MEAN PLATELET VOLUME 9.5 fl (7.4-10.4); MONO % 8.2 % (0-9); PLATELET COUNT 227 K/uL (130-400); RED BLOOD COUNT 3.25 M/uL (4.40-5.70); RED CELL DISTRIBUTION WIDTH 19.5 % (11.5-14.5); WHITE BLOOD COUNT W/O DIFF 4.2 K/uL (4.2-12.2)
[2017-02-06 20:18] LABS: MEAN CORPUSCULAR HEMOGLOBIN 30.7 pg (27-33)
[2017-02-06 20:26] LABS: ALB/GLOB RATIO 0.9 (1.1-1.8); ALBUMIN 3.3 gm/dL (3.5-5.0); ALKALINE PHOSPHATASE 79 U/L (38-126); ALT/SGPT 23 U/L (21-72); ANION GAP 8.2 (7-16); AST/SGOT 16 U/L (17-59); BLOOD UREA NITROGEN 19 mg/dL (9-20); CARBON DIOXIDE 26.8 mmol/L (22-30); CREATININE 0.9 mg/dL (0.66-1.25); EST GLOMERULAR FILTRATION RATE > 60 ml/min; GLUCOSE,RANDOM 182 mg/dL (70-110); TOTAL PROTEIN 6.9 gm/dL (6.3-8.2)
[2017-02-06] MEDS ORDERED: PROMETHAZINE HCL 25 MG/ML VIAL IV ONE (20:30)
[2017-02-06] MEDS ORDERED: 0.9 % SODIUM CHLORIDE 1,000 ML BAG IV ONE (20:30)
[2017-02-06 20:42] LABS: LIPASE 13 U/L (23-300)
[2017-02-06 20:55] LABS: TROPONIN I < 0.012 ng/mL (0.00-0.034)
[2017-02-06 21:48] LABS: URINE APPEARANCE SL CLOUDY; URINE BILIRUBIN SMALL (NEGATIVE); URINE BLOOD NEGATIVE (NEGATIVE); URINE COLOR BROWN; URINE GLUCOSE (UA) NEGATIVE (NEGATIVE); URINE KETONE NEGATIVE (NEGATIVE); URINE LEUKOCYTE ESTERASE NEGATIVE (NEGATIVE); URINE NITRITE NEGATIVE (NEGATIVE)
[2017-02-06 21:50] LABS: URINE PROTEIN 300 mg/dL (NEGATIVE)
--- NOTE | 2017-02-06 23:26 | Emergency Department Record ---
History of Present Illness - General Chief complaint: Vomiting Stated complaint: VOMITING Time Seen by Provider: 02/06/17 20:23 Source: Patient Mode of Arrival: Wheelchair Limitations: No limitations - History of Present Illness Initial comments: pt has been vomiting since last night multiple times and cant keep water down.. no d/c. had nomal bm today. pt has difuse pain. pt has had 50 lb wt loss in last 4 mos. pt has recently had egd, colonoscopy at [facility]. complaint: Abdominal pain, Nausea, Vomiting Onset/Timin -: Hour(s) Associated Abdominal Pain: No Radiation: None Quality: Other Consistency: Intermittent Improves with: None Worsens with: None Associated Symptoms: Denies other symptoms, Nausea/vomiting - Related Data Home Medications Medication Instructions Recorded Confirmed Last Taken Aspirin [Ecotrin] 81 mg PO DAILY 07/05/14 02/06/17 10/07/16 Insulin Detemir [Levemir Flexpen] 20 units SQ QHS 07/05/14 02/06/17 10/07/16 Levothyroxine Sodium [Synthroid] 150 mcg PO DAILY 07/05/14 02/06/17 10/07/16 Nitroglycerin [Nitrostat] 0.4 mg SL ASDIR PRN 12/01/14 02/06/17 10/07/16 Pantoprazole Sodium [Protonix] 40 mg PO DAILY 12/01/14 02/06/17 10/07/16 Clopidogrel Bisulfate [Plavix] 75 mg PO DAILY 07/31/15 02/06/17 10/07/16 Ferrous Sulfate 325 mg PO TID 07/31/15 02/06/17 10/07/16 Metoprolol Tartrate 25 mg PO BID 08/25/16 02/06/17 10/07/16 Previous Rx's Medication Instructions Recorded Polyethylene Glycol 3350 [Miralax] 1 packet PO DAILY #30 packet 04/30/16 Acetaminophen [Tylenol 500Mg Tab] 500 mg PO Q6H PRN #0 tablet 08/26/16 Ramipril [Altace] 10 mg PO BID capsule 08/26/16 Simvastatin [Zocor] 80 mg PO QHS tablet 08/26/16 Allergies Allergy/AdvReac Type Severity Reaction Status Date / Time No Known Drug Allergies Allergy Verified 10/07/16 17:58 Travel Screening - Travel/Exposure Within Last 30 Days Have you traveled within the last 30 days?: No - Travel/Exposure Within Last Year Have you traveled outside the [place] in the last year?: No - Additonal Travel Details Have you been exposed to anyone with a communicable illness?: No - Travel Symptoms Symptom Screening: None Review of Systems Reviewed: No additional complaints except as noted below Constitutional: Reports: As per HPI. Denies: Chills, Fever, Malaise, Night sweats, Weakness, Weight change Eyes: Reports: As per HPI. Denies: Eye discharge, Eye pain, Photophobia, Vision change ENT: Reports: As per HPI. Denies: Congestion, Dental pain, Ear pain, Epistaxis , Hearing loss, Throat pain Respiratory: Reports: As per HPI. Denies: Cough, Dyspnea, Hemoptysis, Stridor, Wheezes Cardiovascular: Reports: As per HPI. Denies: Arrhythmia, Chest pain, Dyspnea on exertion, Edema, Murmurs, Orthopnea, Palpitations, Paroxysmal nocturnal dyspnea, Rheumatic Fever, Syncope Endocrine: Reports: As per HPI. Denies: Fatigue, Heat or cold intolerance, Polydipsia, Polyuria Gastrointestinal: Reports: As per HPI. Denies: Abdominal pain, Constipation, Diarrhea, Hematemesis, Hematochezia, Melena, Nausea, Vomiting Genitourinary: Reports: As per HPI. Denies: Dysuria, Frequency, Hematuria, Incontinence, Retention, Testicular pain, Testicular mass, Urgency Musculoskeletal: Reports: As per HPI. Denies: Arthralgia, Back pain, Gout, Joint swelling, Myalgia, Neck pain Skin: Reports: As per HPI. Denies: Bruising, Change in color, Change in hair/ nails, Lesions, Pruritus, Rash Neurological: Reports: As per HPI. Denies: Abnormal gait, Confusion, Headache, Numbness, Paresthesias, Seizure, Tingling, Tremors, Vertigo, Weakness Psychiatric: Reports: As per HPI. Denies: Anxiety, Auditory hallucinations, Depression, Homicidal thoughts, Suicidal thoughts, Visual hallucinations Hematological/Lymphatic: Reports: As per HPI. Denies: Anemia, Blood Clots, Easy bleeding, Easy bruising, Swollen glands Past Medical History - SOCIAL HISTORY Smoking Status: Former smoker Alcohol Use: None Drug Use: None - RESPIRATORY Hx Respiratory Disorders: No Comment:: some SOB in past - CARDIOVASCULAR Hx Cardio Disorders: Yes Hx Cardiac Cath: Yes (4 cardiac stents) Hx Chest Pain: Yes Hx Deep Vein Thrombosis: Yes (8 stents in BLE) Hx Heart Attack: Yes Hx Hypertension: Yes - NEURO Hx Neuro Disorders: Yes Hx Dizziness: Yes Hx Headaches: Yes - GI Hx GI Disorders: Yes Hx Reflux: Yes Comment:: constipation - Hx Genitourinary Disorders: No - ENDOCRINE Hx Endocrine Disorders: Yes Hx Diabetes: Yes Hx Thyroid Disease: Yes - MUSCULOSKELETAL Hx Musculoskeletal Disorders: No - PSYCH Hx Psych Problems: No Comment:: frustrated with not knowing where his blood is going - HEMATOLOGY/ONCOLOGY Hx Hematology/Oncology Disorders: Yes Hx Anemia: Yes (sees a [employer]) Hx Blood Transfusions: Yes Hx Blood Transfusion Reaction: No Comment:: "MDS" Family Medical History Any Significant Family History?: Yes Hx Cancer: Mother Physical Exam - General General Appearance: Alert, Oriented x3, Cooperative, Mild distress, Other ( cachectic) - Head Head exam: Normal inspection - Eye Eye exam: Normal appearance, PERRL, EOMI Pupils: Normal accommodation - ENT ENT exam: Normal exam, Mucous membranes dry, Normal external ear exam, Normal orophraynx Ear exam: Normal external inspection. negative: External canal tenderness Nasal Exam: Normal inspection. negative: Discharge, Sinus tenderness Mouth exam: Normal external inspection, Tongue normal Teeth exam: Normal inspection. negative: Dental caries Throat exam: Normal inspection. negative: Tonsillar erythema, Tonsillar exudate - Neck Neck exam: Normal inspection, Full ROM. negative: Tenderness - Respiratory Respiratory exam: Normal lung sounds bilaterally. negative: Respiratory distress - Cardiovascular Cardiovascular Exam: Regular rate, Normal rhythm, Normal heart sounds - GI/Abdominal GI/Abdominal exam: Soft, Normal bowel sounds, Tenderness - Rectal Rectal exam: Deferred - exam: Deferred - Extremities Extremities exam: Normal inspection, Full ROM, Normal capillary refill. negative: Tenderness - Back Back exam: Reports: Normal inspection, Full ROM. Denies: Muscle spasm, Rash noted, Tenderness - Neurological Neurological exam: Alert, CN II-XII intact, Normal gait, Oriented X3 - Psychiatric Psychiatric exam: Normal affect, Normal mood - Skin Skin exam: Dry, Intact, Normal color, Warm Course Vital Signs 02/06/17 02/06/17 02/06/17 19:59 21:26 22:57 Temperature 98.5 F Pulse Rate 73 Pulse Rate [ 80 81 Pulse Ox Probe] Respiratory 20 20 20 Rate Blood Pressure 128/59 Blood Pressure 166/74 181/93 [Left Arm] Pulse Ox 100 98 99 - Reevaluation(s) Reevaluation #1: 02/06/17 23:31 ptstopped vomitng but then vomited water up Reevaluation #2: 02/07/17 00:47 pt feels better. he was able to keep water down Medical Decision Making - Management Options MDM Management: Additional Work-up Planned (e.g. ADM/Transfer/OP Study) - Data Complexity MDM Data: Labs Ordered and/or Reviewed, X-Ray Ordered and/or Reviewed, EKG Ordered and/or Reviewed - Lab Data Result diagrams: 02/06/17 20:00 02/06/17 20:00 Lab Results 02/06/17 02/06/17 02/06/17 Range/Units 20:00 20:00 20:00 WBC 4.2 (4.2-12.2) K/uL Corrected WBC RBC 3.25 L (4.40-5.70) M/uL Hgb 10.0 L (14.0-18.0) gm/dl Hct 31.4 L (42.0-52.0) % MCV 96.6 (81-97) fl MCH 30.7 (27-33) pg MCHC 31.8 L (32-36) g/dl RDW 19.5 H (11.5-14.5) % Plt Count 227 (130-400) K/uL MPV 9.5 (7.4-10.4) fl Gran % 76.4 (47-80) % Lymphocytes % 15.2 L (16-45) % Monocytes % 8.2 (0-9) % Eosinophils % 0.0 (0-6) % Basophils % 0.2 (0-6) % Sodium 134 L (136-145) mmol/L Potassium 4.4 (3.5-5.1) mmol/L Chloride 99 (98-107) mmol/L Carbon Dioxide 26.8 (22-30) mmol/L Anion Gap 8.2 (7-16) BUN 19 (9-20) mg/dL Creatinine 0.9 (0.66-1.25) mg/dL Estimated GFR > 60 ml/min Random Glucose 182 H (70-110) mg/dL Calcium 8.6 (8.5-10.1) mg/dL Total Bilirubin 1.40 H (0.2-1.3) mg/dL AST 16 L (17-59) U/L ALT 23 (21-72) U/L Alkaline Phosphatase 79 (38-126) U/L Troponin I < 0.012 (0.00-0.034) ng/mL Total Protein 6.9 (6.3-8.2) gm/dL Albumin 3.3 L (3.5-5.0) gm/dL Globulin 3.6 (1.4-4.8) gm/dL Albumin/Globulin Ratio 0.9 L (1.1-1.8) Lipase 13 L (23-300) U/L Urine Color Urine Appearance Urine pH (5.0-8.0) Ur Specific [place] (1.002-1.030) Urine Protein (NEGATIVE) Urine Glucose (UA) (NEGATIVE) Urine Ketones (NEGATIVE) Urine Blood (NEGATIVE) Urine Nitrite (NEGATIVE) Urine Bilirubin (NEGATIVE) Urine Urobilinogen (0.20 - 1.00) E.U./dL Ur Leukocyte Esterase (NEGATIVE) Urine RBC Urine WBC 02/06/17 02/06/17 Range/Units 20:30 21:49 WBC Cancelled (4.2-12.2) K/uL Corrected WBC Cancelled RBC Cancelled (4.40-5.70) M/uL Hgb Cancelled (14.0-18.0) gm/dl Hct Cancelled (42.0-52.0) % MCV Cancelled (81-97) fl MCH Cancelled (27-33) pg MCHC Cancelled (32-36) g/dl RDW Cancelled (11.5-14.5) % Plt Count Cancelled (130-400) K/uL MPV Cancelled (7.4-10.4) fl Gran % Cancelled (47-80) % Lymphocytes % Cancelled (16-45) % Monocytes % Cancelled (0-9) % Eosinophils % Cancelled (0-6) % Basophils % Cancelled (0-6) % Sodium (136-145) mmol/L Potassium (3.5-5.1) mmol/L Chloride (98-107) mmol/L Carbon Dioxide (22-30) mmol/L Anion Gap (7-16) BUN (9-20) mg/dL Creatinine (0.66-1.25) mg/dL Estimated GFR ml/min Random Glucose (70-110) mg/dL Calcium (8.5-10.1) mg/dL Total Bilirubin (0.2-1.3) mg/dL AST (17-59) U/L ALT (21-72) U/L Alkaline Phosphatase (38-126) U/L Troponin I (0.00-0.034) ng/mL Total Protein (6.3-8.2) gm/dL Albumin (3.5-5.0) gm/dL Globulin (1.4-4.8) gm/dL Albumin/Globulin Ratio (1.1-1.8) Lipase (23-300) U/L Urine Color Brown H Urine Appearance Sl cloudy Urine pH 6.0 (5.0-8.0) Ur Specific [place] >= 1.030 (1.002-1.030) Urine Protein 300 mg/dl H (NEGATIVE) Urine Glucose (UA) Negative (NEGATIVE) Urine Ketones Negative (NEGATIVE) Urine Blood Negative (NEGATIVE) Urine Nitrite Negative (NEGATIVE) Urine Bilirubin Small H (NEGATIVE) Urine Urobilinogen 1.0 (0.20 - 1.00) E.U./dL Ur Leukocyte Esterase Negative (NEGATIVE) Urine RBC Not Reportable Urine WBC Not Reportable Disposition Disposition: Discharge Clinical Impression: Vomiting Qualifiers: Vomiting type: unspecified Vomiting Intractability: intractable Nausea presence : with nausea Qualified Code(s): R11.2 - Nausea with vomiting, unspecified Disposition: Home, Self-Care Condition: (1) Good Instructions: Acute Nausea and Vomiting (ED) Additional Instructions: follow up with family doctor. return sooner if worse. clear liquids only for 12 hours. Forms: Patient Portal Access
--- NOTE | 2017-02-08 10:39 | CT SCAN REPORT ---
EXAM: CT SCAN OF THE CHEST WITHOUT CONTRAST HISTORY: PATIENT HAS NAUSEA AND VOMITING. TECHNIQUE: Serial axial CT scan of the chest was performed at 3.75 mm intervals from the thoracic inlet to the dome of the diaphragm without the use of intravenous contrast. Comparison: CT scan of the abdomen and pelvis dated 05/06/[address] scan of the neck dated 07/31/15 is provided. FINDINGS: The thoracic inlet is unremarkable. Lung windows demonstrate scarring within the right lung apex which is unchanged with respect to the prior CT scan. Significant emphysematous changes are identified bilaterally. Calcified granuloma within the right upper lobe is unchanged with respect to the prior CT scan. Small pleural effusions are identified bilaterally. Mild passive atelectasis is noted within the bilateral lower lobes. The heart size and contour is within normal limits. Noncontrasted thoracic aorta is unremarkable. Several subcentimeter lymph nodes are identified within the mediastinum. These appear unchanged with respect to the prior CT scan. These may be reactive. The chest wall is unremarkable. Bone windows demonstrate no CT evidence of a fracture or dislocation of the visualized thoracic structures of the chest. Axial images through the upper abdomen demonstrate the visualized liver to be unremarkable. Splenomegaly is identified. There is diffuse thickening of the esophageal wall. These findings may be the result of chronic gastroesophageal reflux. Clinical correlation is recommended. IMPRESSION: 1. SMALL BILATERAL PLEURAL EFFUSIONS WITH MILD BILATERAL POSTERIOR LOWER LOBE PASSIVE ATELECTASIS. FOLLOW-UP PA AND LATERAL VIEW OF THE CHEST CAN BE OBTAINED UNTIL RESOLUTION OF FINDINGS. 2. DIFFUSE THICKENING OF THE ESOPHAGUS. THIS FINDING MAY BE THE RESULT OF GASTROESOPHAGEAL REFLUX. CLINICAL CORRELATION IS RECOMMENDED. JOB NUMBER: [id number] [facility]
--- NOTE | 2017-02-08 10:49 | CT SCAN REPORT ---
EXAM: CT SCAN OF THE ABDOMEN AND PELVIS WITHOUT CONTRAST HISTORY: PATIENT HAS NAUSEA AND VOMITING. TECHNIQUE: Serial axial CT scan of the abdomen and pelvis was performed at 3.75 mm intervals from the dome of the diaphragm down to the pubic symphysis without the use of intravenous contrast. Comparison: CT scan of the abdomen and pelvis dated 05/06/16 is provided. FINDINGS: Lung windows of the lung bases demonstrate small bilateral pleural effusions. Diffuse esophageal thickening of the distal esophagus is visualized. This finding may be the result of gastroesophageal reflux. Clinical correlation is recommended. The liver demonstrates normal size and contour. No suspicious hepatic lesions are identified. The spleen measures 17 cm in AP dimension. This is considered enlarged. The pancreas and bilateral adrenal glands are unremarkable. The gallbladder is distended and demonstrates multiple dependent gallstones. The gallbladder wall is thickened and there is a small amount of pericholecystic fluid. Clinical correlation for acute cholecystitis is recommended. There is no CT evidence of hydronephrosis or hydroureter. There is a 3.9 mm nonobstructive calculus within the inferior pole of the left kidney. Punctate 10 mm calculus is noted within the superior pole of the left kidney which is also nonobstructive. The contour and caliber of the noncontrasted abdominal aorta is within normal limits. There is no CT evidence of retroperitoneal, pelvic, or inguinal lymphadenopathy. The bowel gas pattern is nonspecific and nonobstructive. There is apparent thickening of the large bowel wall which I believe is related to underdistention. The urinary bladder is unremarkable. The prostate is unremarkable. A small amount of free intraperitoneal fluid is noted. There is no CT evidence of free intraperitoneal air. IMPRESSION: 1. SMALL BILATERAL PLEURAL EFFUSIONS. 2. SPLENOMEGALY. 3. THE GALLBLADDER WALL IS THICKENED WITH DEPENDENT GALLSTONES. A SMALL AMOUNT OF PERICHOLECYSTIC FLUID IS NOTED. THESE FINDINGS ARE SUSPICIOUS FOR ACUTE CHOLECYSTITIS. CLINICAL CORRELATION IS RECOMMENDED. IF THERE IS FURTHER CLINICAL CONCERN THEN NUCLEAR SCINTIGRAPHIC HIDA SCAN CAN BE OBTAINED FOR FURTHER EVALUATION. 4. SMALL AMOUNT OF FREE INTRAPERITONEAL FLUID. JOB NUMBER: [id number] [facility]
== END 2017-02-07 00:55 | disposition home or self-care (01) ==
LOC: ER 19:40
DX: R11.2 Nausea with vomiting, unspecified (principal); R10.9 Unspecified abdominal pain; D46.9 Myelodysplastic syndrome, unspecified; E11.9 Type 2 diabetes mellitus without complications; I10 Essential (primary) hypertension; I25.2 Old myocardial infarction; Z87.891 Personal history of nicotine dependence
CPT/HCPCS: 71250; 74176; 80053; 81001; 83690; 84484; 85025; 93005; 93010; 96361; 96374; 99284; J2550; J7030

== ENCOUNTER 2017-02-17 08:58 | Emergency (ER) | payer MEDICARE ==
--- NOTE | 2017-02-17 09:14 | Emergency Department Record ---
History of Present Illness - General Chief complaint: Hypogylcemia Stated complaint: BLOOD SUGAR ISSUES Time Seen by Provider: 02/17/17 09:08 Source: Patient Mode of Arrival: EMS Limitations: No limitations - History of Present Illness Initial comments: 72 yo male presents to ED for evaluation following a hypoglycemia episode. Patient reports taking his normal Levimir and Metformin last night around 23:00 , noted to be confused this morning, accu check 19. Patient was given D50, ate some eggs/cheese at home, glucose was initially 168 but then trended back down to 94 prompting visit to the ED. Patient reports that he currently feels find, denies recent illness, dizziness, or confusion, and states "I'm not hungry". MD Complaint: Generalized weakness Onset/Timin -: Hour(s) Location: Generalized Severity: Moderate Consistency: Constant Improves with: Other (glucose) Worsens with: None Associated Symptoms: Denies other symptoms - [place] Coma Scale Eye Response: (4) Open spontaneously Motor Response: (6) Obeys commands Verbal Response: (5) Oriented Mamta Total: 15 - Related Data Home Medications Medication Instructions Recorded Confirmed Last Taken Aspirin [Ecotrin] 81 mg PO DAILY 07/05/14 02/17/17 1 Day Ago ~02/16/17 Insulin Detemir [Levemir Flexpen] 20 units SQ QHS 07/05/14 02/17/17 1 Day Ago ~02/16/17 Levothyroxine Sodium [Synthroid] 150 mcg PO DAILY 07/05/14 02/17/17 1 Day Ago ~02/16/17 Nitroglycerin [Nitrostat] 0.4 mg SL ASDIR PRN 12/01/14 02/17/17 1 Day Ago ~02/16/17 Pantoprazole Sodium [Protonix] 40 mg PO DAILY 12/01/14 02/17/17 1 Day Ago ~02/16/17 Clopidogrel Bisulfate [Plavix] 75 mg PO DAILY 07/31/15 02/17/17 1 Day Ago ~02/16/17 Ferrous Sulfate 325 mg PO TID 07/31/15 02/17/17 1 Day Ago ~02/16/17 Metoprolol Tartrate 25 mg PO BID 08/25/16 02/17/17 1 Day Ago ~02/16/17 Previous Rx's Medication Instructions Recorded Polyethylene Glycol 3350 [Miralax] 1 packet PO DAILY #30 packet 04/30/16 Acetaminophen [Tylenol 500Mg Tab] 500 mg PO Q6H PRN #0 tablet 08/26/16 Ramipril [Altace] 10 mg PO BID capsule 08/26/16 Simvastatin [Zocor] 80 mg PO QHS tablet 08/26/16 Allergies Allergy/AdvReac Type Severity Reaction Status Date / Time No Known Drug Allergies Allergy Verified 02/17/17 09:11 Review of Systems Constitutional: Denies: Chills, Fever, Malaise, Night sweats Eyes: Denies: Eye discharge, Eye pain ENT: Denies: Congestion, Ear pain Respiratory: Denies: Cough, Dyspnea Cardiovascular: Denies: Chest pain, Dyspnea on exertion Endocrine: Denies: Fatigue, Heat or cold intolerance Gastrointestinal: Denies: Abdominal pain, Nausea, Vomiting Genitourinary: Denies: Incontinence, Retention Musculoskeletal: Denies: Arthralgia, Back pain Skin: Denies: Bruising, Change in color Neurological: Denies: Abnormal gait, Confusion, Headache, Seizure Psychiatric: Denies: Anxiety Hematological/Lymphatic: Denies: Anemia, Blood Clots Past Medical History - SOCIAL HISTORY Smoking Status: Former smoker Drug Use: None - RESPIRATORY Hx Respiratory Disorders: No Comment:: some SOB in past - CARDIOVASCULAR Hx Cardio Disorders: Yes Hx Cardiac Cath: Yes (4 cardiac stents) Hx Chest Pain: Yes Hx Deep Vein Thrombosis: Yes (8 stents in BLE) Hx Heart Attack: Yes Hx Hypertension: Yes - NEURO Hx Neuro Disorders: Yes Hx Dizziness: Yes Hx Headaches: Yes - GI Hx GI Disorders: Yes Hx Reflux: Yes Comment:: constipation - Hx Genitourinary Disorders: No - ENDOCRINE Hx Endocrine Disorders: Yes Hx Diabetes: Yes Hx Thyroid Disease: Yes - MUSCULOSKELETAL Hx Musculoskeletal Disorders: No - PSYCH Hx Psych Problems: No Comment:: frustrated with not knowing where his blood is going - HEMATOLOGY/ONCOLOGY Hx Hematology/Oncology Disorders: Yes 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 negative: Conjunctival injection, Periorbital swelling, Periorbital tenderness, Scleral icterus - ENT Ear exam: negative: Auricular hematoma, Auricular trauma Nasal Exam: negative: Active bleeding, Discharge, Dried blood, Foreign body Mouth exam: negative: Drooling, Laceration, Muffled voice, Tongue elevation - Neck Neck exam: Normal inspection. negative: Meningismus, Tenderness - Respiratory Respiratory exam: Normal lung sounds bilaterally. negative: Rales, Respiratory distress, Rhonchi, Stridor - Cardiovascular Cardiovascular Exam: Regular rate, Normal rhythm, Normal heart sounds - GI/Abdominal GI/Abdominal exam: Soft. negative: Rebound, Rigid, Tenderness - Rectal Rectal exam: Deferred - exam: Deferred - Extremities Extremities exam: Normal inspection. negative: Calf tenderness, Pedal edema, Tenderness - Back Back exam: Denies: CVA tenderness (R), CVA tenderness (L) - Neurological Neurological exam: Alert, Normal gait, Oriented X3 - Psychiatric Psychiatric exam: Normal affect, Normal mood - Skin Skin exam: Normal color. negative: Abrasion Type of lesion: negative: abrasion Course - Reevaluation(s) Reevaluation #1: 02/17/17 09:31 EKG: NSR 81 LAD, IVCD nonspecific ST-T wave changes Reevaluation #2: 02/17/17 10:13 Repeat Accucheck 70. Reevaluation #3: 02/17/17 10:22 Labs reviewed, Hgb 9.5, Glucose 53 (drawn prior to most recent accucheck). Labs are otherwise grossly unremarkable for an acute process. Will re-draw Accucheck in 10 minutes. CXR: Mild CHF with small bilateral pleural effusions 02/17/17 10:24 Reevaluation #4: 02/17/17 10:53 Repeat Accu check is 82, patient has not received any exogenous glucose while in the ED. I discussed observation overnight for hypothermia, patient reports that he is always cold and that his low temperature is not unusual for him. Patient reports that he is ready to go home with family at the bedside. Medical Decision Making - Lab Data Result diagrams: 02/17/17 09:40 02/17/17 09:40 Disposition Disposition: Discharge Clinical Impression: Hypoglycemia Disposition: Home, Self-Care Condition: (2) Stable Instructions: Hypoglycemia in a Person with Diabetes (ED) Additional Instructions: Return to ED if your symptoms worsen or if you have any concerns. Follow-up with your family doctor in 3-5 days as directed. Follow your doctor's instructions to reduce your Insulin intake at night. Forms: Patient Portal Access Time of Disposition: 10:56
[2017-02-17 09:49] LABS: HEMATOCRIT 30.7 % (42.0-52.0); HEMOGLOBIN 9.5 gm/dl (14.0-18.0); MEAN CORPUSCULAR HGB CONC 30.9 g/dl (32-36); MEAN PLATELET VOLUME 8.8 fl (7.4-10.4); PLATELET COUNT 288 K/uL (130-400); RED BLOOD COUNT 3.41 M/uL (4.40-5.70); RED CELL DISTRIBUTION WIDTH 16.6 % (11.5-14.5); WHITE BLOOD COUNT W/O DIFF 7.9 K/uL (4.2-12.2)
[2017-02-17 09:51] LABS: MEAN CORPUSCULAR HEMOGLOBIN 27.8 pg (27-33)
[2017-02-17 10:03] LABS: ALB/GLOB RATIO 0.9 (1.1-1.8); ALBUMIN 3.4 gm/dL (3.5-5.0); ALKALINE PHOSPHATASE 120 U/L (38-126); ALT/SGPT 17 U/L (21-72); AST/SGOT 16 U/L (17-59); BLOOD UREA NITROGEN 20 mg/dL (9-20); EST GLOMERULAR FILTRATION RATE > 60 ml/min; GLUCOSE,RANDOM 53 mg/dL (70-110); TOTAL PROTEIN 7.4 gm/dL (6.3-8.2)
[2017-02-17 10:06] LABS: CREATINE PHOSPHOKINASE < 20 U/L (55-170)
[2017-02-17 10:15] LABS: CKMB 1.4 ug/L (0-6)
[2017-02-17 10:17] LABS: TROPONIN I < 0.012 ng/mL (0.00-0.034)
--- NOTE | 2017-02-18 22:32 | RADIOLOGY REPORT ---
EXAM: CHEST 2 VIEWS HISTORY: COUGH. HYPOTHERMIA. TECHNIQUE: AP and lateral upright views of the chest were obtained. COMPARISON: 10/22/16. FINDINGS: The patient is status post median sternotomy. The heart is normal in size. There is pulmonary vascular congestion and diffuse interstitial edema, which has increased when compared to the prior study consistent with CHF. There are small bilateral pleural effusions. The lungs are hyperinflated consistent with underlying COPD. No acute osseous abnormalities are identified. IMPRESSION: 1. CHF AND SMALL BILATERAL PLEURAL EFFUSIONS. 2. COPD. JOB NUMBER: [id number] [facility]
== END 2017-02-17 11:10 | disposition home or self-care (01) ==
LOC: ER 08:58
DX: E11.649 Type 2 diabetes mellitus with hypoglycemia without coma (principal); R41.0 Disorientation, unspecified; R53.1 Weakness; T68.XXXA Hypothermia, initial encounter; R05 Cough; D46.9 Myelodysplastic syndrome, unspecified; Z79.4 Long term (current) use of insulin; I10 Essential (primary) hypertension; I25.2 Old myocardial infarction; I50.9 Heart failure, unspecified; J44.9 Chronic obstructive pulmonary disease, unspecified
CPT/HCPCS: 36416; 71020; 80053; 82550; 82553; 82948; 83605; 84484; 85027; 93005; 93010

== ENCOUNTER 2017-03-03 15:33 | Emergency (ER) | payer MEDICARE ==
[2017-03-03] MEDS ORDERED: EYE IRRIGATION SOLU. (SOD BOR/BORIC AC/H20/NACL) 118ML BTL OPTH ONE (15:52)
[2017-03-03] MEDS ORDERED: PROPARACAINE HCL OPTH 15ML BTL OPTH ONE (15:53)
--- NOTE | 2017-03-03 18:49 | Emergency Department Record ---
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 his flushed w contact solution the intermittantly flushed with water through out the day. eye now has discharge chief complaint: Eye pain, Eye redness, Vision change -: Hour(s) Onset Description: Sudden Location: Right eye Place: Home If Injury: Chemical exposure Severity: Moderate Severity scale (1-10): 3 If Pain, Quality: Aching Consistency: Constant Context: Contact lens use - Related Data Visual acuity (L) = 20/: 100 Visual acuity (R) = 20/: 100 With correction: No (wears cont) Hx Tetanus Toxoid Vaccination: Yes Year of Tetanus Vaccination: 2012 Home Medications Medication Instructions Recorded Confirmed Last Taken Aspirin [Ecotrin] 81 mg PO DAILY 07/05/14 02/17/17 1 Day Ago ~02/16/17 Insulin Detemir [Levemir Flexpen] 20 units SQ QHS 07/05/14 02/17/17 1 Day Ago ~02/16/17 Levothyroxine Sodium [Synthroid] 150 mcg PO DAILY 07/05/14 02/17/17 1 Day Ago ~02/16/17 Nitroglycerin [Nitrostat] 0.4 mg SL ASDIR PRN 12/01/14 02/17/17 1 Day Ago ~02/16/17 Pantoprazole Sodium [Protonix] 40 mg PO DAILY 12/01/14 02/17/17 1 Day Ago ~02/16/17 Clopidogrel Bisulfate [Plavix] 75 mg PO DAILY 07/31/15 02/17/17 1 Day Ago ~02/16/17 Ferrous Sulfate 325 mg PO TID 07/31/15 02/17/17 1 Day Ago ~02/16/17 Metoprolol Tartrate 25 mg PO BID 08/25/16 02/17/17 1 Day Ago ~02/16/17 Previous Rx's Medication Instructions Recorded Polyethylene Glycol 3350 [Miralax] 1 packet PO DAILY #30 packet 04/30/16 Acetaminophen [Tylenol 500Mg Tab] 500 mg PO Q6H PRN #0 tablet 08/26/16 Ramipril [Altace] 10 mg PO BID capsule 08/26/16 Simvastatin [Zocor] 80 mg PO QHS tablet 08/26/16 Neomycin/Polymyxin B/Dexametha 3.5 gm OP QID #1 oint...g. 03/03/17 [Maxitrol Eye Ointment] Allergies Allergy/AdvReac Type Severity Reaction Status Date / Time No Known Drug Allergies Allergy Verified 02/17/17 09:11 Travel Screening - Travel/Exposure Within Last 30 Days Have you traveled within the last 30 days?: No - Travel/Exposure Within Last Year Have you traveled outside the [place] in the last year?: No - Additonal Travel Details Have you been exposed to anyone with a communicable illness?: No - Travel Symptoms Symptom Screening: None Review of Systems Reviewed: No additional complaints except as noted below Constitutional: Reports: As per HPI. Denies: Chills, Fever, Malaise, Night sweats, Weakness, Weight change Eyes: Reports: As per HPI. Denies: Eye discharge, Eye pain, Photophobia, Vision change ENT: Reports: As per HPI. Denies: Congestion, Dental pain, Ear pain, Epistaxis , Hearing loss, Throat pain Respiratory: Reports: As per HPI. Denies: Cough, Dyspnea, Hemoptysis, Stridor, Wheezes Cardiovascular: Reports: As per HPI. Denies: Arrhythmia, Chest pain, Dyspnea on exertion, Edema, Murmurs, Orthopnea, Palpitations, Paroxysmal nocturnal dyspnea, Rheumatic Fever, Syncope Endocrine: Reports: As per HPI. Denies: Fatigue, Heat or cold intolerance, Polydipsia, Polyuria Gastrointestinal: Reports: As per HPI. Denies: Abdominal pain, Constipation, Diarrhea, Hematemesis, Hematochezia, Melena, Nausea, Vomiting Genitourinary: Reports: As per HPI. Denies: Dysuria, Frequency, Hematuria, Incontinence, Retention, Testicular pain, Testicular mass, Urgency Musculoskeletal: Reports: As per HPI. Denies: Arthralgia, Back pain, Gout, Joint swelling, Myalgia, Neck pain Skin: Reports: As per HPI. Denies: Bruising, Change in color, Change in hair/ nails, Lesions, Pruritus, Rash Neurological: Reports: As per HPI. Denies: Abnormal gait, Confusion, Headache, Numbness, Paresthesias, Seizure, Tingling, Tremors, Vertigo, Weakness Psychiatric: Reports: As per HPI. Denies: Anxiety, Auditory hallucinations, Depression, Homicidal thoughts, Suicidal thoughts, Visual hallucinations Hematological/Lymphatic: Reports: As per HPI. Denies: Anemia, Blood Clots, Easy bleeding, Easy bruising, Swollen glands Past Medical History - SOCIAL HISTORY Smoking Status: Former smoker Alcohol Use: None Drug Use: None - RESPIRATORY Hx Respiratory Disorders: No Comment:: some SOB in past - CARDIOVASCULAR Hx Cardio Disorders: Yes Hx Cardiac Cath: Yes (4 cardiac stents) Hx Chest Pain: Yes Hx Deep Vein Thrombosis: Yes (8 stents in BLE) Hx Heart Attack: Yes Hx Hypertension: Yes - NEURO Hx Neuro Disorders: Yes Hx Dizziness: Yes Hx Headaches: Yes - GI Hx GI Disorders: Yes Hx Reflux: Yes Comment:: constipation - Hx Genitourinary Disorders: No - ENDOCRINE Hx Endocrine Disorders: Yes Hx Diabetes: Yes Hx Thyroid Disease: Yes - MUSCULOSKELETAL Hx Musculoskeletal Disorders: No - PSYCH Hx Psych Problems: No Comment:: frustrated with not knowing where his blood is going - HEMATOLOGY/ONCOLOGY Hx Hematology/Oncology Disorders: Yes 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) Hx Blood Transfusions: Yes Hx Blood Transfusion Reaction: No Comment:: "MDS" Family Medical History Any Significant Family History?: Yes Hx Cancer: Mother Physical Exam - General General Appearance: Alert, Oriented x3, Cooperative, Mild distress - Head Head exam: Normal inspection - Eye Eye exam: Normal appearance, PERRL, Conjunctival injection, EOMI, Other ( discharge from eye, conjunctival swelling) Pupils: Normal accommodation With correction: No (wears cont) Image of Eyes: 1 - corneal abrasion w flourscein uptake - ENT ENT exam: Normal exam, Mucous membranes moist, Normal external ear exam, Normal orophraynx Ear exam: Normal external inspection. negative: External canal tenderness Nasal Exam: Normal inspection. negative: Discharge, Sinus tenderness Mouth exam: Normal external inspection, Tongue normal Teeth exam: Normal inspection. negative: Dental caries Throat exam: Normal inspection. negative: Tonsillar erythema, Tonsillar exudate - Neck Neck exam: Normal inspection, Full ROM. negative: Tenderness - Respiratory Respiratory exam: Normal lung sounds bilaterally. negative: Respiratory distress - Cardiovascular Cardiovascular Exam: Regular rate, Normal rhythm, Normal heart sounds - GI/Abdominal GI/Abdominal exam: Soft, Normal bowel sounds. negative: Tenderness - Rectal Rectal exam: Deferred - exam: Deferred - Extremities Extremities exam: Normal inspection, Full ROM, Normal capillary refill. negative: Tenderness - Back Back exam: Reports: Normal inspection, Full ROM. Denies: Muscle spasm, Rash noted, Tenderness - Neurological Neurological exam: Alert, Normal gait, Oriented X3, Reflexes normal - Psychiatric Psychiatric exam: Normal affect, Normal mood - Skin Skin exam: Dry, Intact, Normal color, Warm Course Vital Signs 03/03/17 15:47 Temperature 98.1 F Pulse Rate [ 79 Pulse Ox Probe] Respiratory 20 Rate Blood Pressure 147/61 [Left Arm] Pulse Ox 99 - Reevaluation(s) Reevaluation #1: 03/03/17 18:52 poison control called. they stated ph is 5.8. dr vasquez paged Reevaluation #2: 03/03/17 19:07 d/w dr vasquez who will see pt sunday if not better. plan of action d/w dr vasquez w his suggestions Disposition Disposition: Discharge Clinical Impression: Chemical exposure of eye Disposition: Home, Self-Care Condition: (1) Good Instructions: Chemical Eye Ray (ED), Corneal Abrasion (ED) Additional Instructions: follow up with dr vasquez if not better on sunday. return sooner if worse. leave patch on tonight only. maxitrol 4 times a day. motrin with food if needed Prescriptions: Neomycin/Polymyxin B/Dexametha [Maxitrol Eye Ointment] 3.5 gm OP QID #1 oint...g. Referrals: CHECO VASQUEZ [MEDICAL DOCTOR] - Forms: Patient Portal Access Quality - Quality Measures Quality Measures: N/A - Blood Pressure Screening Blood Pressure Classification: Hypertensive Reading Systolic Measurement: 147 Diastolic Measurement: 61 Screening for High Blood Pressure: < First Hypertensive BP, F/U Documented > [ G8950] First Hypertensive Follow-up Interventions: Follow-up with rescreen GT 1 day and LT 4 weeks., Referral to alternative/primary care provider.
[2017-03-03] MEDS ORDERED: CYCLOPENTOLATE HCL OPTH PRN (19:04)
[2017-03-03] MEDS ORDERED: HYDROCODONE/APAP 5/325MG TABLET PO ONE (19:09)
[2017-03-03] MEDS ORDERED: NEOMYCIN/POLY./DEXAM OPTH OINT OPTH SCH (19:15)
[2017-03-03] MEDS ORDERED: NEO/POLY B/DEXAMETH 5ML SUSP EACH EYE ONE (19:20)
[2017-03-03] MEDS ORDERED: CYCLOPENTOLATE HCL OPTH ONE (19:20)
== END 2017-03-03 19:36 | disposition home or self-care (01) ==
LOC: ER 15:33
DX: T60.8X1A Toxic effect of other pesticides, accidental (unintentional), initial encounter (principal); T26.61XA Corrosion of cornea and conjunctival sac, right eye, initial encounter; H57.11 Ocular pain, right eye; Y92.009 Unspecified place in unspecified non-institutional (private) residence as the place of occurrence of the external cause; D46.20 Refractory anemia with excess of blasts, unspecified; D46.9 Myelodysplastic syndrome, unspecified; D70.9 Neutropenia, unspecified
CPT/HCPCS: 99283 ×2; Q5101; 96372

== ENCOUNTER 2017-03-23 09:34 | Emergency (ER) | payer MEDICARE ==
[2017-03-23] MEDS ORDERED: ONDANSETRON HCL IV 4 MG/2 ML VIAL IVP ONE (10:09)
[2017-03-23 10:25] LABS: HEMATOCRIT 40.3 % (42.0-52.0); HEMOGLOBIN 12.6 gm/dl (14.0-18.0); MEAN CELL VOLUME 86.7 fl (81-97); MEAN CORPUSCULAR HGB CONC 31.3 g/dl (32-36); MEAN PLATELET VOLUME 9.8 fl (7.4-10.4); PLATELET COUNT 207 K/uL (130-400); RED BLOOD COUNT 4.65 M/uL (4.40-5.70); RED CELL DISTRIBUTION WIDTH 17.2 % (11.5-14.5); WHITE BLOOD COUNT W/O DIFF 3.2 K/uL (4.2-12.2)
--- NOTE | 2017-03-23 10:34 | Emergency Department Record ---
History of Present Illness - General Chief complaint: Vomiting Stated complaint: VOMITING/WEAKNESS Time Seen by Provider: 03/23/17 09:59 Source: Patient Mode of Arrival: Wheelchair Limitations: No limitations - History of Present Illness Initial comments: pt comes in for ap epigastric and vomiting. he denies any problems w his liver in the past. complaint: Nausea, Vomiting Onset/Timin -: Hour(s) Description of Vomiting: Watery, Other Location: Epigastric Severity: Moderate Severity scale (1-10): 6 Quality: Sharp Consistency: Constant Improves with: None Worsens with: Eating Context: Other Associated Symptoms: Weakness - Related Data Home Medications Medication Instructions Recorded Confirmed Last Taken Aspirin [Ecotrin] 81 mg PO DAILY 07/05/14 02/17/17 1 Day Ago ~02/16/17 Insulin Detemir [Levemir Flexpen] 20 units SQ QHS 07/05/14 02/17/17 1 Day Ago ~02/16/17 Levothyroxine Sodium [Synthroid] 150 mcg PO DAILY 07/05/14 02/17/17 1 Day Ago ~02/16/17 Nitroglycerin [Nitrostat] 0.4 mg SL ASDIR PRN 12/01/14 02/17/17 1 Day Ago ~02/16/17 Pantoprazole Sodium [Protonix] 40 mg PO DAILY 12/01/14 02/17/17 1 Day Ago ~02/16/17 Clopidogrel Bisulfate [Plavix] 75 mg PO DAILY 07/31/15 02/17/17 1 Day Ago ~02/16/17 Ferrous Sulfate 325 mg PO TID 07/31/15 02/17/17 1 Day Ago ~02/16/17 Metoprolol Tartrate 25 mg PO BID 08/25/16 02/17/17 1 Day Ago ~02/16/17 Previous Rx's Medication Instructions Recorded Polyethylene Glycol 3350 [Miralax] 1 packet PO DAILY #30 packet 04/30/16 Acetaminophen [Tylenol 500Mg Tab] 500 mg PO Q6H PRN #0 tablet 08/26/16 Ramipril [Altace] 10 mg PO BID capsule 08/26/16 Simvastatin [Zocor] 80 mg PO QHS tablet 08/26/16 Neomycin/Polymyxin B/Dexametha 3.5 gm OP QID #1 oint...g. 03/03/17 [Maxitrol Eye Ointment] Allergies Allergy/AdvReac Type Severity Reaction Status Date / Time No Known Drug Allergies Allergy Verified 03/23/17 09:44 Travel Screening - Travel/Exposure Within Last 30 Days Have you traveled within the last 30 days?: No - Travel/Exposure Within Last Year Have you traveled outside the [place] in the last year?: No - Additonal Travel Details Have you been exposed to anyone with a communicable illness?: No - Travel Symptoms Symptom Screening: None Review of Systems Reviewed: No additional complaints except as noted below Constitutional: Reports: As per HPI. Denies: Chills, Fever, Malaise, Night sweats, Weakness, Weight change Eyes: Reports: As per HPI. Denies: Eye discharge, Eye pain, Photophobia, Vision change ENT: Reports: As per HPI. Denies: Congestion, Dental pain, Ear pain, Epistaxis , Hearing loss, Throat pain Respiratory: Reports: As per HPI. Denies: Cough, Dyspnea, Hemoptysis, Stridor, Wheezes Cardiovascular: Reports: As per HPI. Denies: Arrhythmia, Chest pain, Dyspnea on exertion, Edema, Murmurs, Orthopnea, Palpitations, Paroxysmal nocturnal dyspnea, Rheumatic Fever, Syncope Endocrine: Reports: As per HPI. Denies: Fatigue, Heat or cold intolerance, Polydipsia, Polyuria Gastrointestinal: Reports: As per HPI. Denies: Abdominal pain, Constipation, Diarrhea, Hematemesis, Hematochezia, Melena, Nausea, Vomiting Genitourinary: Reports: As per HPI. Denies: Dysuria, Frequency, Hematuria, Incontinence, Retention, Testicular pain, Testicular mass, Urgency Musculoskeletal: Reports: As per HPI. Denies: Arthralgia, Back pain, Gout, Joint swelling, Myalgia, Neck pain Skin: Reports: As per HPI. Denies: Bruising, Change in color, Change in hair/ nails, Lesions, Pruritus, Rash Neurological: Reports: As per HPI. Denies: Abnormal gait, Confusion, Headache, Numbness, Paresthesias, Seizure, Tingling, Tremors, Vertigo, Weakness Psychiatric: Reports: As per HPI. Denies: Anxiety, Auditory hallucinations, Depression, Homicidal thoughts, Suicidal thoughts, Visual hallucinations Hematological/Lymphatic: Reports: As per HPI. Denies: Anemia, Blood Clots, Easy bleeding, Easy bruising, Swollen glands Past Medical History - SOCIAL HISTORY Smoking Status: Former smoker Alcohol Use: None Drug Use: None - RESPIRATORY Hx Respiratory Disorders: No Comment:: some SOB in past - CARDIOVASCULAR Hx Cardio Disorders: Yes Hx Cardiac Cath: Yes (4 cardiac stents) Hx Chest Pain: Yes Hx Deep Vein Thrombosis: Yes (8 stents in BLE) Hx Heart Attack: Yes Hx Hypertension: Yes - NEURO Hx Neuro Disorders: Yes Hx Dizziness: Yes Hx Headaches: Yes - GI Hx GI Disorders: Yes Hx Reflux: Yes Comment:: constipation - Hx Genitourinary Disorders: No - ENDOCRINE Hx Endocrine Disorders: Yes Hx Diabetes: Yes Hx Thyroid Disease: Yes - MUSCULOSKELETAL Hx Musculoskeletal Disorders: No - PSYCH Hx Psych Problems: No Comment:: frustrated with not knowing where his blood is going - HEMATOLOGY/ONCOLOGY Hx Hematology/Oncology Disorders: Yes 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 negative: External canal tenderness Nasal Exam: Normal inspection. negative: Discharge, Sinus tenderness Mouth exam: Normal external inspection, Tongue normal Teeth exam: Normal inspection. negative: Dental caries Throat exam: Normal inspection. negative: Tonsillar erythema, Tonsillar exudate - Neck Neck exam: Normal inspection, Full ROM. negative: Tenderness - Respiratory Respiratory exam: Normal lung sounds bilaterally. negative: Respiratory distress - Cardiovascular Cardiovascular Exam: Regular rate, Normal rhythm, Normal heart sounds - GI/Abdominal GI/Abdominal exam: Soft, Normal bowel sounds, Tenderness - Rectal Rectal exam: Deferred - exam: Deferred - Extremities Extremities exam: Normal inspection, Full ROM, Normal capillary refill. negative: Tenderness - Back Back exam: Reports: Normal inspection, Full ROM. Denies: Muscle spasm, Rash noted, Tenderness - Neurological Neurological exam: Alert, CN II-XII intact, Normal gait, Oriented X3 - Psychiatric Psychiatric exam: Normal affect, Normal mood - Skin Skin exam: Dry, Intact, Normal color, Warm, Other (juandice) Course Vital Signs 03/23/17 09:45 Temperature 97.7 F Pulse Rate 65 Respiratory 18 Rate Blood Pressure 174/71 Pulse Ox 100 - Reevaluation(s) Reevaluation #1: 03/23/17 13:08 d/w dr jose Medical Decision Making - Lab Data Result diagrams: 03/23/17 09:50 03/23/17 09:50 Lab Results 03/23/17 Range/Units 09:50 WBC 3.2 L (4.2-12.2) K/uL RBC 4.65 (4.40-5.70) M/uL Hgb 12.6 L (14.0-18.0) gm/dl Hct 40.3 L (42.0-52.0) % MCV 86.7 (81-97) fl MCH 27.0 (27-33) pg MCHC 31.3 L (32-36) g/dl RDW 17.2 H (11.5-14.5) % Plt Count 207 (130-400) K/uL MPV 9.8 (7.4-10.4) fl Eosinophils % Not Reportable Basophils % Not Reportable Disposition Disposition: Transfer Clinical Impression: Hyperbilirubinemia Cholecystitis with cholelithiasis Qualifiers: Cholelithiasis location: gallbladder and bile duct Cholecystitis acuity: acute Biliary obstruction: with biliary obstruction Qualified Code(s): K80.63 - Calculus of gallbladder and bile duct with acute cholecystitis with obstruction Pancreatitis Qualifiers: Chronicity: acute Pancreatitis type: biliary Acute pancreatitis complication: unspecified Qualified Code(s): K85.10 - Biliary acute pancreatitis without necrosis or infection Disposition: Acute Care Hospital Transfer Transfer To: [facility] Reason For Transfer: needs surgeon and ercp Accepting Physician: rebeca Time Discussed w/Accepting Physician: 13:12 Forms: Patient Portal Access Quality - Quality Measures Quality Measures: N/A - Blood Pressure Screening Blood Pressure Classification: Hypertensive Reading Systolic Measurement: 174 Diastolic Measurement: 71 Screening for High Blood Pressure: < First Hypertensive BP, F/U Documented > [ G8950] First Hypertensive Follow-up Interventions: Follow-up with rescreen GT 1 day and LT 4 weeks.
[2017-03-23 10:40] LABS: ALB/GLOB RATIO 0.9 (1.1-1.8); ALBUMIN 3.8 gm/dL (3.5-5.0); ALKALINE PHOSPHATASE 517 U/L (38-126); ALT/SGPT 184 U/L (21-72); ANION GAP 13.5 (7-16); AST/SGOT 137 U/L (17-59); BLOOD UREA NITROGEN 21 mg/dL (9-20); CARBON DIOXIDE 19.5 mmol/L (22-30); CREATININE 1.2 mg/dL (0.66-1.25); EST GLOMERULAR FILTRATION RATE > 60 ml/min; GLUCOSE,RANDOM 180 mg/dL (70-110); TOTAL PROTEIN 7.9 gm/dL (6.3-8.2)
[2017-03-23 10:43] LABS: PLATELET ESTIMATE NORMAL (NORMAL)
[2017-03-23 10:51] LABS: AMMONIA < 8.7 umol/L (9-30)
[2017-03-23 11:00] LABS: LIPASE 6814 U/L (23-300)
[2017-03-23] MEDS ORDERED: ZARXIO 300 MCG/0.5 ML SQ ONE (13:15)
--- NOTE | 2017-03-24 16:52 | CT SCAN REPORT ---
EXAM: CT SCAN ABDOMEN/PELVIS WO CONTRAST HISTORY: THE PATIENT IS VERY JAUNDICE. ABDOMINAL PAIN. ELEVATED LIVER ENZYMES. TECHNIQUE: Axial CT scan of the abdomen and pelvis performed without oral or IV contrast. COMPARISON: CT abdomen and pelvis dated 02/06/17. FINDINGS: Upper scans demonstrate bilateral pleural effusions, slightly larger on the right and essentially unchanged on the left compared with the prior study. Apparent cholelithiasis as previously reported. Somewhat thick-walled appearance of the gallbladder. Blurring in the margin of the gallbladder as well. These findings are all similar to before and acute cholecystitis cannot be excluded. However, there is also ascites present and some hazy increased density throughout much of the mesentery, which somewhat limits evaluation for similar findings around the gallbladder itself. Nonobstructing calculi within the left kidney, also present previously. No hydronephrosis or hydroureter seen on either side with no definite ureteral calculus on either side and no bladder calculus evident. Some mild prostate calcification is present. Evaluation of the bowel and viscera is very limited without oral or IV contrast. Given this limitation, no definite hepatic, or splenic mass evident. splenomegaly is again noted in the spleen appearing essentially unchanged in size from before, again measuring about 17 cm in AP diameter. No definite adrenal, pancreatic, or renal mass identified. Heavy calcification of the abdominal aorta and iliacs, as before. No definite appendicitis identified. No free intraperitoneal air identified. IMPRESSION: 1. APPARENT CHOLELITHIASIS WITH ADDITIONAL FINDINGS RAISING THE POSSIBILITY OF ACUTE CHOLECYSTITIS. SIMILAR FINDINGS SEEN PREVIOUSLY ON 02/06/17. 2. SPLENOMEGALY, BEFORE. 3. ASCITES IS SEEN TODAY, ALSO PRESENT PREVIOUSLY AND HAVING CHANGED RELATIVELY LITTLE IN THE INTERVAL. HAZY INCREASED DENSITY IN MUCH OF THE MESENTERY WELL SOMEWHAT LIMITING EVALUATION OF THESE FINDINGS AROUND THE GALLBLADDER ITSELF, DESCRIBED ABOVE. 4. BILATERAL PLEURAL EFFUSIONS, SLIGHTLY INCREASED ON THE RIGHT AND ESSENTIALLY UNCHANGED ON THE LEFT COMPARED WITH THE PRIOR STUDY. JOB NUMBER: [id number] [id number]
== END 2017-03-23 13:48 | disposition short-term general hospital (02) ==
LOC: ER 09:34
DX: K80.63 Calculus of gallbladder and bile duct with acute cholecystitis with obstruction (principal); K85.10 Biliary acute pancreatitis without necrosis or infection; E80.6 Other disorders of bilirubin metabolism; R53.1 Weakness; R11.2 Nausea with vomiting, unspecified; D46.20 Refractory anemia with excess of blasts, unspecified; D46.9 Myelodysplastic syndrome, unspecified
CPT/HCPCS: 99285 ×2; 96374; 96372; 83605; 83690; 82140; 80053; 85027; 74176; J2405; Q5101

== ENCOUNTER 2017-05-31 12:20 | Emergency (ER) | payer MEDICARE ==
[2017-05-31 14:29] LABS: URINE APPEARANCE CLEAR; URINE BILIRUBIN NEGATIVE (NEGATIVE); URINE BLOOD MODERATE (NEGATIVE); URINE COLOR YELLOW; URINE GLUCOSE (UA) NEGATIVE (NEGATIVE); URINE KETONE NEGATIVE (NEGATIVE); URINE LEUKOCYTE ESTERASE NEGATIVE (NEGATIVE); URINE NITRITE NEGATIVE (NEGATIVE); URINE UROBILINOGEN 0.2 E.U./dL (0.20 - 1.00)
--- NOTE | 2017-05-31 14:33 | Emergency Department Record ---
History of Present Illness - General Chief complaint: Edema Stated complaint: SWELLING ALL OVER Time Seen by Provider: 05/31/17 13:47 Source: Patient Mode of Arrival: Wheelchair Limitations: No limitations - History of Present Illness Initial comments: The patient is here due to swelling first in his hands R>L, then now his feet for about a month. He also may have had some lip and face swelling today but that is now gone. His visiting nurse did come to the home today and told him to go to the ER for the swelling. There has been no EVELIA, CP, fever, SOB, or AP. The patient has a hx of MDS and Neutropenia and does get shots to increase his WBC weekly. He also did not take his BP medicines today. MD Complaint: Other Onset/Timin -: Days(s) Location: Bilateral, Ankle, Hand History of Same: Yes Worsens with: Exertion Associated Symptoms: Arthralgias - Related Data Previous Rx's Medication Instructions Recorded Polyethylene Glycol 3350 [Miralax] 1 packet PO DAILY #30 packet 04/30/16 Acetaminophen [Tylenol 500Mg Tab] 500 mg PO Q6H PRN #0 tablet 08/26/16 Ramipril [Altace] 10 mg PO BID capsule 08/26/16 Simvastatin [Zocor] 80 mg PO QHS tablet 08/26/16 Neomycin/Polymyxin B/Dexametha 3.5 gm OP QID #1 oint...g. 03/03/17 [Maxitrol Eye Ointment] Furosemide [Lasix] 20 mg PO DAILY #5 tablet 05/31/17 Allergies Allergy/AdvReac Type Severity Reaction Status Date / Time No Known Drug Allergies Allergy Verified 03/23/17 09:44 Travel Screening - Travel/Exposure Within Last 30 Days Have you traveled within the last 30 days?: No - Travel/Exposure Within Last Year Have you traveled outside the [place] in the last year?: No - Additonal Travel Details Have you been exposed to anyone with a communicable illness?: No - Travel Symptoms Symptom Screening: Joint & Muscle Aches, Weakness, Fatigue Review of Systems Constitutional: Denies: Chills, Fever Eyes: Denies: Eye discharge ENT: Denies: Congestion Respiratory: Denies: Cough, Dyspnea Past Medical History - SOCIAL HISTORY Smoking Status: Former smoker Alcohol Use: None Drug Use: None - RESPIRATORY Hx Respiratory Disorders: No Comment:: some SOB in past - CARDIOVASCULAR Hx Cardio Disorders: Yes Hx Cardiac Cath: Yes (4 cardiac stents) Hx Chest Pain: Yes Hx Deep Vein Thrombosis: Yes (8 stents in BLE) Hx Heart Attack: Yes Hx Hypertension: Yes - NEURO Hx Neuro Disorders: Yes Hx Dizziness: Yes Hx Headaches: Yes - GI Hx GI Disorders: Yes Hx Reflux: Yes Comment:: constipation, possible iggy problems - Hx Genitourinary Disorders: No - ENDOCRINE Hx Endocrine Disorders: Yes Hx Diabetes: Yes Hx Thyroid Disease: Yes - MUSCULOSKELETAL Hx Musculoskeletal Disorders: No - PSYCH Hx Psych Problems: No Comment:: frustrated with not knowing where his blood is going - HEMATOLOGY/ONCOLOGY Hx Hematology/Oncology Disorders: Yes 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 negative: Tonsillar erythema, Tonsillar exudate - Neck Neck exam: Normal inspection, Full ROM. negative: Tenderness - Respiratory Respiratory exam: Normal lung sounds bilaterally. negative: Respiratory distress - Cardiovascular Cardiovascular Exam: Regular rate, Normal rhythm, Normal heart sounds - GI/Abdominal GI/Abdominal exam: Soft, Normal bowel sounds. negative: Tenderness - Extremities Extremities exam: Pedal edema (1+ brawny bilaterally but very chronic per patient.), Tenderness (The hands are mildly tender bilaterally R > L but that has been a chronic issue.), Other (There is no tenderness or edema to the arms, elbows, or forearms.). negative: Normal inspection (There is mild to moderate edema to the hands worse than the feet. There is no warmth, erythema or signs of any infection. The radial pulses are normal bilaterally.), Full ROM - Neurological Neurological exam: Alert. negative: Motor sensory deficit Course Vital Signs 05/31/17 13:36 Temperature 97.6 F Pulse Rate 80 Respiratory 20 Rate Blood Pressure 187/85 Pulse Ox 100 - Reevaluation(s) Reevaluation #1: The patient is doing very well. I did discuss the plan with the patient to give him a short course of Lasix. I also did discuss the case with Dr. Penaloza and he agrees and will see the patient in the office early next week. 05/31/17 15:11 Reevaluation #2: The patient is doing well at this time. I did discuss the case at length with him and his . He will need to elevate the hands as much as possible and to take the lasix. He is to see his PCP early next week for recheck. 05/31/17 15:37 Medical Decision Making - Lab Data Result diagrams: 05/31/17 14:45 05/31/17 14:45 Disposition Disposition: Discharge Clinical Impression: Bilateral hand swelling Disposition: Home, Self-Care Condition: (2) Stable Instructions: Edema (ED) Additional Instructions: Please elevate your hands at all times. Take the Lasix as directed. Please see your PCP early next week. Return to the ER for any increased swelling, pain, fever, or any new issues. Prescriptions: Furosemide [Lasix] 20 mg PO DAILY #5 tablet Forms: Patient Portal Access Time of Disposition: 15:39 Quality - Quality Measures Quality Measures: N/A - Blood Pressure Screening View Details: Yes Does Patient Have Any of the Following: No, Active Dx of HTN Blood Pressure Classification: Hypertensive Reading Systolic Measurement: 185 Diastolic Measurement: 106 Screening for High Blood Pressure: Patient Exclusion, Hx of HTN [G9744]
[2017-05-31 14:38] LABS: URINE EPITHELIAL CELLS NONE SEEN (FEW); URINE WBC NONE SEEN (0-2/hpf)
[2017-05-31 14:54] LABS: HEMATOCRIT 37.3 % (42.0-52.0); HEMOGLOBIN 11.4 gm/dl (14.0-18.0); MEAN CELL VOLUME 87.4 fl (81-97); MEAN CORPUSCULAR HGB CONC 30.6 g/dl (32-36); MEAN PLATELET VOLUME 9.2 fl (7.4-10.4); PLATELET COUNT 226 K/uL (130-400); RED BLOOD COUNT 4.27 M/uL (4.40-5.70); RED CELL DISTRIBUTION WIDTH 17.9 % (11.5-14.5); WHITE BLOOD COUNT W/O DIFF 16.4 K/uL (4.2-12.2)
[2017-05-31 14:57] LABS: MEAN CORPUSCULAR HEMOGLOBIN 26.6 pg (27-33)
[2017-05-31 15:03] LABS: PLATELET ESTIMATE NORMAL (NORMAL)
[2017-05-31] MEDS ORDERED: FUROSEMIDE 40 MG TABLET PO ONE (15:06)
[2017-05-31 15:21] LABS: ALB/GLOB RATIO 0.9 (1.1-1.8); ALBUMIN 3.2 g/dL (4.0-5.0); ALKALINE PHOSPHATASE 159 U/L (40-129); ALT/SGPT 6 U/L (<41); AST/SGOT 11 U/L (10.0-50.0); BLOOD UREA NITROGEN 17 mg/dL (8-23); CREATININE 0.8 mg/dL (0.7-1.2); EST GLOMERULAR FILTRATION RATE > 60 mL/min; GLUCOSE,RANDOM 180 mg/dL (74-109); TOTAL PROTEIN 6.7 g/dL (6.6-8.7)
== END 2017-05-31 16:05 | disposition home or self-care (01) ==
LOC: ER 12:20
DX: R60.0 Localized edema (principal); D46.9 Myelodysplastic syndrome, unspecified; E11.9 Type 2 diabetes mellitus without complications; I10 Essential (primary) hypertension; I25.2 Old myocardial infarction; Z87.891 Personal history of nicotine dependence
CPT/HCPCS: 80053; 81001; 84443; 85027; 99283

== ENCOUNTER 2017-08-17 16:30 | Emergency (ER) | payer MEDICARE ==
--- NOTE | 2017-08-17 16:57 | Emergency Department Record ---
History of Present Illness - General Chief complaint: Extremity Problem Stated complaint: INFECTION ON LEFT FOOT Time Seen by Provider: 08/17/17 16:55 Source: Patient, Family - History of Present Illness Initial comments: The patient's states his visiting nurse and Dr. Penaloza wanted his heel wound cultured because it wasn't healing. He has had the wound which is enlarging for about 3-4 weeks. His toe lesion is improving slowly. He denies other symptoms such as f,c,cp, danielle, ap, leg swelling, or other issues. MD Complaint: Other (heel ulcer) - Related Data Previous Rx's Medication Instructions Recorded Polyethylene Glycol 3350 [Miralax] 1 packet PO DAILY #30 packet 04/30/16 Acetaminophen [Tylenol 500Mg Tab] 500 mg PO Q6H PRN #0 tablet 08/26/16 Ramipril [Altace] 10 mg PO BID capsule 08/26/16 Simvastatin [Zocor] 80 mg PO QHS tablet 08/26/16 Neomycin/Polymyxin B/Dexametha 3.5 gm OP QID #1 oint...g. 03/03/17 [Maxitrol Eye Ointment] Furosemide [Lasix] 20 mg PO DAILY #5 tablet 05/31/17 Allergies Allergy/AdvReac Type Severity Reaction Status Date / Time No Known Drug Allergies Allergy Verified 08/17/17 17:01 Review of Systems Reviewed: No additional complaints except as noted below Constitutional: Reports: As per HPI. Denies: Chills, Fever, Malaise, Night sweats, Weakness, Weight change Eyes: Reports: As per HPI. Denies: Eye discharge, Eye pain, Photophobia, Vision change ENT: Reports: As per HPI. Denies: Congestion, Dental pain, Ear pain, Epistaxis , Hearing loss, Throat pain Respiratory: Reports: As per HPI. Denies: Cough, Dyspnea, Hemoptysis, Stridor, Wheezes Cardiovascular: Reports: As per HPI. Denies: Arrhythmia, Chest pain, Dyspnea on exertion, Edema, Murmurs, Orthopnea, Palpitations, Paroxysmal nocturnal dyspnea, Rheumatic Fever, Syncope Endocrine: Reports: As per HPI. Denies: Fatigue, Heat or cold intolerance, Polydipsia, Polyuria Gastrointestinal: Reports: As per HPI. Denies: Abdominal pain, Constipation, Diarrhea, Hematemesis, Hematochezia, Melena, Nausea, Vomiting Genitourinary: Reports: As per HPI. Denies: Dysuria, Frequency, Hematuria, Incontinence, Retention, Testicular pain, Testicular mass, Urgency Musculoskeletal: Reports: As per HPI. Denies: Arthralgia, Back pain, Gout, Joint swelling, Myalgia, Neck pain Skin: Reports: As per HPI. Denies: Bruising, Change in color, Change in hair/ nails, Lesions, Pruritus, Rash Neurological: Reports: As per HPI. Denies: Abnormal gait, Confusion, Headache, Numbness, Paresthesias, Seizure, Tingling, Tremors, Vertigo, Weakness Psychiatric: Reports: As per HPI. Denies: Anxiety, Auditory hallucinations, Depression, Homicidal thoughts, Suicidal thoughts, Visual hallucinations Hematological/Lymphatic: Reports: As per HPI. Denies: Anemia, Blood Clots, Easy bleeding, Easy bruising, Swollen glands Past Medical History - SOCIAL HISTORY Smoking Status: Former smoker Drug Use: None - RESPIRATORY Hx Respiratory Disorders: No Comment:: some SOB in past - CARDIOVASCULAR Hx Cardio Disorders: Yes Hx Cardiac Cath: Yes (4 cardiac stents) Hx Chest Pain: Yes Hx Deep Vein Thrombosis: Yes (8 stents in BLE) Hx Heart Attack: Yes Hx Hypertension: Yes - NEURO Hx Neuro Disorders: Yes Hx Dizziness: Yes Hx Headaches: Yes - GI Hx GI Disorders: Yes Hx Reflux: Yes Comment:: constipation, possible iggy problems - Hx Genitourinary Disorders: No - ENDOCRINE Hx Endocrine Disorders: Yes Hx Diabetes: Yes Hx Thyroid Disease: Yes - MUSCULOSKELETAL Hx Musculoskeletal Disorders: No - PSYCH Hx Psych Problems: No Comment:: frustrated with not knowing where his blood is going - HEMATOLOGY/ONCOLOGY Hx Hematology/Oncology Disorders: Yes 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 negative: External canal tenderness Nasal Exam: Normal inspection. negative: Discharge, Sinus tenderness Mouth exam: Normal external inspection, Tongue normal Teeth exam: Normal inspection. negative: Dental caries Throat exam: Normal inspection. negative: Tonsillar erythema, Tonsillar exudate - Neck Neck exam: Normal inspection, Full ROM. negative: Tenderness - Respiratory Respiratory exam: Normal lung sounds bilaterally. negative: Respiratory distress - Cardiovascular Cardiovascular Exam: Regular rate, Normal rhythm, Normal heart sounds - GI/Abdominal GI/Abdominal exam: Soft, Normal bowel sounds. negative: Tenderness - Rectal Rectal exam: Deferred - exam: Deferred - Extremities Extremities exam: Normal inspection, Full ROM, Normal capillary refill, Other ( left heel plantar surface with less than 1 cm round ulcer with central inspissation. Culture obtained and sent to lab.). negative: Tenderness - Back Back exam: Reports: Normal inspection, Full ROM. 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 Follow up with Dr. Penaloza as instructed previously. Forms: Patient Portal Access Quality - Quality Measures Quality Measures: N/A - Blood Pressure Screening Does Patient Have Any of the Following: No Blood Pressure Classification: Pre-Hypertensive BP Reading Systolic Measurement: 190 Diastolic Measurement: 83 Screening for High Blood Pressure: Patient Exclusion, Hx of HTN [G9744]
--- NOTE | 2017-08-17 23:26 | RADIOLOGY REPORT ---
EXAM: HEEL, LEFT HISTORY: WOUND ON LEFT HEEL AND TOE FOR THE PAST MONTH. TECHNIQUE: Left calcaneus. COMPARISON: Left foot x-rays 06/07/2016. FINDINGS: No fracture or acute osseous abnormality. No destructive or erosive change. There are plantar and dorsal calcaneal spurs. There are vascular calcifications. IMPRESSION: 1. NO FRACTURE OR DESTRUCTIVE PROCESS SEEN. 2. THERE ARE CALCANEAL SPURS. JOB NUMBER: [id number] [facility]
== END 2017-08-17 18:09 | disposition home or self-care (01) ==
LOC: ER 16:30
DX: L97.429 Non-pressure chronic ulcer of left heel and midfoot with unspecified severity (principal); E11.9 Type 2 diabetes mellitus without complications; I10 Essential (primary) hypertension; I25.2 Old myocardial infarction; J44.9 Chronic obstructive pulmonary disease, unspecified; Z79.4 Long term (current) use of insulin; Z87.891 Personal history of nicotine dependence
CPT/HCPCS: 99283

== ENCOUNTER 2018-02-21 09:22 | Day surgery (SDC) | payer MEDICAID, MEDICARE ==
[2018-02-21] MEDS ORDERED: LIDOCAINE 2% MDV (20MG/ML) 20ML VIAL IV ONE ×2 (09:23)
[2018-02-21] MEDS ORDERED: TETRACAINE HCL 0.5% 15 ML OPTH BTL OPTH ONE (09:23)
[2018-02-21] MEDS ORDERED: NEOMYCIN/POLY./DEXAM OPTH OINT OPTH ONE (09:23)
[2018-02-21] MEDS ORDERED: PROPOFOL 10 MG/ML VIAL IV ONE (09:23)
[2018-02-21] MEDS ORDERED: EPINEPHRINE 1 MG/ML AMPUL SQ ONE (09:23)
[2018-02-21] MEDS ORDERED: CIPROFLOXACIN HCL 0.0015 GM, PHENYLEPHRINE HCL 0.05 GM, KETOROLAC TROMETHAMINE 0.000625 GM MC ONE ×5 (14:30)
--- NOTE | 2018-02-21 17:06 | OP NOTE CHAMES ---
DATE OF PROCEDURE: 02/21/18 PREOPERATIVE DIAGNOSIS: Nuclear sclerotic cataract, left eye. POSTOPERATIVE DIAGNOSIS: Nuclear sclerotic cataract, left eye. OPERATION: Phacoemulsification of cataractous lens with implantation of intraocular lens. LENS IMPLANT USED: Ramsay Model PCB00 + 29.5 diopters. COMPLICATIONS: None. PROCEDURE IN DETAIL: Following a retrobulbar and facial block, the patient was prepped and draped in the usual fashion for eye surgery. A lid speculum was placed in the left eye after which a 2.4 mm tunnel wound was placed at the temporal limbus and dissected into clear cornea. A paracentesis was placed at 2 oclock hours to the left and right of the initial incision and the chamber deepened with Viscoelastic. The keratome was then used to enter the anterior chamber after which the continuous circular capsulorrhexis was accomplished without difficulty using a bent needle and a Utrata forceps. Hydrodissection and hydrodelineation of the lens was performed after which the nucleus of the lens was removed using the Phaco handpiece in the [id number] technique. The residual cortical material was irrigated and aspirated from the eye after which the bag and chamber were re-examined. The bag was re-inflated with Viscoelastic and the intraocular lens injected into the capsular bag where it centered well. The Viscoelastic was then copiously irrigated and aspirated from the eye after which the temporal tunnel wound and paracentesis were hydrated and the wounds were examined. They were noted to be watertight. The lid speculum was removed from the eye and the eye patched and shielded. The patient was transferred to the recovery room in satisfactory condition and given an appointment to be reexamined in the clinic later today or as directed by Dr. Feliciano. JOB NUMBER: [id number] [facility]
== END 2018-02-21 12:05 | disposition home or self-care (01) ==
LOC: SUR 09:22
PROVIDERS: ATTEND Ophthalmology
DX: H25.12 Age-related nuclear cataract, left eye (principal); I10 Essential (primary) hypertension; E78.00 Pure hypercholesterolemia, unspecified
CPT/HCPCS: J0171

== ENCOUNTER → 2018-03-07 | Day surgery (SDC) | payer MEDICARE ==
[~2018-03-07] MED LIST: EPINEPHRINE 1 MG/ML AMPUL SQ ONE; LIDOCAINE 2% MDV (20MG/ML) 20ML VIAL IV ONE; NEOMYCIN/POLY./DEXAM OPTH OINT OPTH ONE; PROPOFOL 10 MG/ML VIAL IV ONE; TETRACAINE HCL 0.5% 15 ML OPTH BTL OPTH ONE
--- NOTE | 2018-03-07 20:50 | OP NOTE CHAMES ---
DATE OF PROCEDURE: 03/07/18 PREOPERATIVE DIAGNOSIS: Nuclear sclerotic cataract, right eye. POSTOPERATIVE DIAGNOSIS: Nuclear sclerotic cataract, right eye. OPERATION: Phacoemulsification of cataractous lens with implantation of intraocular lens. LENS IMPLANT USED: Ramsay Model PCB00 + 30.0 diopters. COMPLICATIONS: None. PROCEDURE IN DETAIL: Following a retrobulbar and facial block, the patient was prepped and draped in the usual fashion for eye surgery. A lid speculum was placed in the right eye after which a 2.4 mm tunnel wound was placed at the temporal limbus and dissected into clear cornea. A paracentesis was placed at 2 oclock hours to the left and right of the initial incision and the chamber deepened with Viscoelastic. The keratome was then used to enter the anterior chamber after which the continuous circular capsulorrhexis was accomplished without difficulty using a bent needle and a Utrata forceps. Hydrodissection and hydrodelineation of the lens was performed after which the nucleus of the lens was removed using the Phaco handpiece in the [id number] technique. The residual cortical material was irrigated and aspirated from the eye after which the bag and chamber were re-examined. The bag was re-inflated with Viscoelastic and the intraocular lens injected into the capsular bag where it centered well. The Viscoelastic was then copiously irrigated and aspirated from the eye after which the temporal tunnel wound and paracentesis were hydrated and the wounds were examined. They were noted to be watertight. The lid speculum was removed from the eye and the eye patched and shielded. The patient was transferred to the recovery room in satisfactory condition and given an appointment to be reexamined in the clinic later today or as directed by Dr. Feliciano. JOB NUMBER: [id number] [facility]
== END | disposition home or self-care (01) ==
LOC: SUR 07:58
PROVIDERS: ATTEND Ophthalmology
DX: H25.11 Age-related nuclear cataract, right eye (principal); I10 Essential (primary) hypertension; E78.00 Pure hypercholesterolemia, unspecified; D46.9 Myelodysplastic syndrome, unspecified
CPT/HCPCS: J0171

== ENCOUNTER 2018-04-14 11:45 | Inpatient (IN) | payer MEDICARE ==
[2018-04-14] MEDS ORDERED: ONDANSETRON HCL IV 4 MG/2 ML VIAL IV ONE (12:27)
[2018-04-14] MEDS ORDERED: 0.9 % SODIUM CHLORIDE 1,000 ML BAG IV ONE (12:27)
[2018-04-14 12:48] LABS: HEMATOCRIT 21.2 % (42.0-52.0); MEAN CELL VOLUME 77.4 fl (81-97); MEAN CORPUSCULAR HEMOGLOBIN 22.6 pg (27-33); MEAN CORPUSCULAR HGB CONC 29.2 g/dl (32-36); MEAN PLATELET VOLUME 8.2 fl (7.4-10.4); PLATELET COUNT 349 K/uL (130-400); RED BLOOD COUNT 2.74 M/uL (4.40-5.70); RED CELL DISTRIBUTION WIDTH 19.2 % (11.5-14.5); WHITE BLOOD COUNT W/O DIFF 2.8 K/uL (4.2-12.2)
[2018-04-14 13:01] LABS: BLOOD UREA NITROGEN 19 mg/dL (8-23); CREATININE 0.9 mg/dL (0.7-1.2); EST GLOMERULAR FILTRATION RATE > 60 mL/min
[2018-04-14 13:02] LABS: TOTAL PROTEIN 5.9 g/dL (6.6-8.7)
[2018-04-14 13:04] LABS: ANISOCYTOSIS 1+; GLUCOSE,RANDOM 72 mg/dL (74-109); HYPOCHROMIA 2+; PLATELET ESTIMATE NORMAL (NORMAL)
[2018-04-14 13:05] LABS: HEMOGLOBIN 6.2 gm/dl (14.0-18.0)
[2018-04-14 13:06] LABS: ALT/SGPT < 5 U/L (<41)
[2018-04-14 13:07] LABS: ALB/GLOB RATIO 0.7 (1.1-1.8); ALBUMIN 2.5 g/dL (4.0-5.0); ALKALINE PHOSPHATASE 62 U/L (40-129); AST/SGOT 7 U/L (10.0-50.0); LIPASE 8 U/L (13-60)
--- NOTE | 2018-04-14 13:58 | Emergency Department Record ---
History of Present Illness - General Chief complaint: Weakness Stated complaint: WEAKNESS Time Seen by Provider: 04/14/18 11:48 Source: Patient, Family Mode of Arrival: Wheelchair Limitations: No limitations - History of Present Illness Initial comments: pt here for extreme weakness and vomiting. he has not been able to keep anything down for 4 days. 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 MD Complaint: Generalized weakness, Lack of energy Onset/Timin -: Week(s) Associated Symptoms: Loss of appetite, Nausea/vomiting, Other - [place] Coma Scale Eye Response: (4) Open spontaneously Motor Response: (6) Obeys commands Verbal Response: (5) Oriented Mam[place] Total: 15 - Related Data Home Medications Medication Instructions Recorded Confirmed Last Taken Amlodipine Besylate [Norvasc] 5 mg PO DAILY 04/14/18 04/14/18 Unknown Previous Rx's Medication Instructions Recorded Polyethylene Glycol 3350 [Miralax] 1 packet PO DAILY #30 packet 04/30/16 Simvastatin [Zocor] 80 mg PO QHS tablet 08/26/16 Allergies Allergy/AdvReac Type Severity Reaction Status Date / Time No Known Drug Allergies Allergy Verified 04/14/18 12:02 Travel Screening - Travel/Exposure Within Last 30 Days Have you traveled within the last 30 days?: No - Travel/Exposure Within Last Year Have you traveled outside the [place] in the last year?: No - Additonal Travel Details Have you been exposed to anyone with a communicable illness?: No - Travel Symptoms Symptom Screening: None Review of Systems Reviewed: No additional complaints except as noted below Constitutional: Reports: As per HPI, Malaise, Weakness. Denies: Chills, Fever, Night sweats, Weight change Eyes: Reports: As per HPI. Denies: Eye discharge, Eye pain, Photophobia, Vision change ENT: Reports: As per HPI. Denies: Congestion, Dental pain, Ear pain, Epistaxis , Hearing loss, Throat pain Respiratory: Reports: As per HPI. Denies: Cough, Dyspnea, Hemoptysis, Stridor, Wheezes Cardiovascular: Reports: As per HPI. Denies: Arrhythmia, Chest pain, Dyspnea on exertion, Edema, Murmurs, Orthopnea, Palpitations, Paroxysmal nocturnal dyspnea, Rheumatic Fever, Syncope Endocrine: Reports: As per HPI. Denies: Fatigue, Heat or cold intolerance, Polydipsia, Polyuria Gastrointestinal: Reports: As per HPI, Nausea, Vomiting. Denies: Abdominal pain , Constipation, Diarrhea, Hematemesis, Hematochezia, Melena Genitourinary: Reports: As per HPI. Denies: Dysuria, Frequency, Hematuria, Incontinence, Retention, Testicular pain, Testicular mass, Urgency Musculoskeletal: Reports: As per HPI. Denies: Arthralgia, Back pain, Gout, Joint swelling, Myalgia, Neck pain Skin: Reports: As per HPI. Denies: Bruising, Change in color, Change in hair/ nails, Lesions, Pruritus, Rash Neurological: Reports: As per HPI. Denies: Abnormal gait, Confusion, Headache, Numbness, Paresthesias, Seizure, Tingling, Tremors, Vertigo, Weakness Psychiatric: Reports: As per HPI. Denies: Anxiety, Auditory hallucinations, Depression, Homicidal thoughts, Suicidal thoughts, Visual hallucinations Hematological/Lymphatic: Reports: As per HPI, Anemia. Denies: Blood Clots, Easy bleeding, Easy bruising, Swollen glands Past Medical History - SOCIAL HISTORY Smoking Status: Former smoker Alcohol Use: None Drug Use: None - RESPIRATORY Hx Respiratory Disorders: No Comment:: some SOB in past - CARDIOVASCULAR Hx Cardio Disorders: Yes Hx Cardiac Cath: Yes (4 cardiac stents) Hx Chest Pain: Yes Hx Deep Vein Thrombosis: Yes (8 stents in BLE) Hx Heart Attack: Yes - NEURO Hx Neuro Disorders: Yes Hx Dizziness: Yes - GI Hx GI Disorders: Yes Hx Reflux: Yes Hx Wt Loss/Wt Gain: Yes (60lb loss /past 6 months) Comment:: constipation, possible iggy problems - Hx Genitourinary Disorders: No - ENDOCRINE Hx Endocrine Disorders: Yes Hx Diabetes: Yes - MUSCULOSKELETAL Hx Musculoskeletal Disorders: No Hx Arthritis: Yes - PSYCH Hx Psych Problems: No Hx Depression: Yes (due to illness) Comment:: frustrated with not knowing where his blood is going - HEMATOLOGY/ONCOLOGY Hx Hematology/Oncology Disorders: Yes 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 negative: External canal tenderness Nasal Exam: Normal inspection. negative: Discharge, Sinus tenderness Mouth exam: Normal external inspection, Tongue normal Teeth exam: Normal inspection. negative: Dental caries Throat exam: Normal inspection. negative: Tonsillar erythema, Tonsillar exudate - Neck Neck exam: Normal inspection, Full ROM. negative: Tenderness - Respiratory Respiratory exam: Normal lung sounds bilaterally. negative: Respiratory distress - Cardiovascular Cardiovascular Exam: Regular rate, Normal rhythm, Normal heart sounds - GI/Abdominal GI/Abdominal exam: Soft, Normal bowel sounds. negative: Tenderness - Rectal Rectal exam: Deferred - exam: Deferred - Extremities Extremities exam: Normal inspection, Full ROM, Normal capillary refill. negative: Tenderness - Back Back exam: Reports: Normal inspection, Full ROM. Denies: Muscle spasm, Rash noted, Tenderness - Neurological Neurological exam: Alert, CN II-XII intact, Normal gait, Oriented X3 - Psychiatric Psychiatric exam: Normal affect, Normal mood - Skin Skin exam: Dry, Intact, Pallor Course Vital Signs 04/14/18 11:51 Temperature 97.6 F Pulse Rate 73 Respiratory 16 Rate Blood Pressure 124/79 Pulse Ox 93 L Medical Decision Making - Lab Data Result diagrams: 04/14/18 12:37 04/14/18 12:37 Lab Results 04/14/18 04/14/18 Range/Units 12:37 12:37 WBC 2.8 L (4.2-12.2) K/uL RBC 2.74 L (4.40-5.70) M/uL Hgb 6.2 L* (14.0-18.0) gm/dl Hct 21.2 L (42.0-52.0) % MCV 77.4 L (81-97) fl MCH 22.6 L (27-33) pg MCHC 29.2 L (32-36) g/dl RDW 19.2 H (11.5-14.5) % Plt Count 349 (130-400) K/uL MPV 8.2 (7.4-10.4) fl Neutrophils % 85.0 H (47-80) % Eosinophils % Not Reportable Basophils % Not Reportable Lymphocytes 13.0 L (16-45) % Monocytes 1.0 (0-9) % Platelet Estimate Normal (NORMAL) Hypochromasia 2+ Anisocytosis 1+ Eosinophil Count 1.0 (0-6) % Sodium 131 L (136-145) mmol/L Potassium 3.5 (3.4-4.5) mmol/L Chloride 94 L (98-107) mmol/L Carbon Dioxide 23.0 (22-29) mmol/L Anion Gap 14.0 (7-16) BUN 19 (8-23) mg/dL Creatinine 0.9 (0.7-1.2) mg/dL Estimated GFR > 60 mL/min Random Glucose 72 L (74-109) mg/dL Calcium 7.8 L (8.8-10.2) mg/dL Total Bilirubin 0.60 (0.2-1.0) mg/dL AST 7 L (10.0-50.0) U/L ALT < 5 (<41) U/L Alkaline Phosphatase 62 (40-129) U/L Total Protein 5.9 L (6.6-8.7) g/dL Albumin 2.5 L (4.0-5.0) g/dL Globulin 3.4 (1.4-4.8) gm/dL Albumin/Globulin Ratio 0.7 L (1.1-1.8) Lipase 8 L (13-60) U/L Disposition Disposition: Admit Clinical Impression: Acute anemia, Myelodysplastic syndrome Vomiting Qualifiers: Vomiting type: unspecified Vomiting Intractability: intractable Nausea presence : with nausea Qualified Code(s): R11.2 - Nausea with vomiting, unspecified Disposition: Still a Patient at [facility] Decision to Admit: Admit from ER Decision to Admit Date: 04/14/18 Decision to Admit Time: 15:07 Forms: Patient Portal Access Quality - Quality Measures Quality Measures: N/A - Blood Pressure Screening Does Patient Have Any of the Following: No Blood Pressure Classification: Pre-Hypertensive BP Reading Systolic Measurement: 124 Diastolic Measurement: 79 Screening for High Blood Pressure: < Pre-Hypertensive BP, F/U Documented > [ G8950] Pre-Hypertensive Follow-up Interventions: Follow-up with rescreen every year.
[2018-04-14 14:24] LABS: ABO GROUP O; ANTIBODY SCREEN NEGATIVE (NEGATIVE); RH TYPE POSITIVE
[2018-04-14] MEDS ORDERED: ACETAMINOPHEN 325 MG TAB PO PRN (15:52)
[2018-04-14] MEDS ORDERED: FUROSEMIDE IV 20MG/2ML VIAL IVP SCH (15:52)
[2018-04-14] MEDS ORDERED: ONDANSETRON HCL IV 4 MG/2 ML VIAL IVP PRN (15:52)
[2018-04-14] MEDS ORDERED: NITROGLYCERIN 0.4MG SL TABLET #25 BTL SL PRN (15:52)
[2018-04-14 16:37] LABS: IMMED. SPIN CROSSMATCH COMPATIBLE
[2018-04-14 16:38] LABS: IMMED. SPIN CROSSMATCH COMPATIBLE
[2018-04-14 16:39] LABS: IMMED. SPIN CROSSMATCH COMPATIBLE
[2018-04-14] MEDS: METOPROLOL TART 25 MG TABLET PO SCH (21:39)
[2018-04-14] MEDS ORDERED: SIMVASTATIN 20 MG TABLET PO SCH (22:00)
[2018-04-15 02:52] LABS: URINE APPEARANCE CLEAR; URINE BILIRUBIN NEGATIVE (NEGATIVE); URINE BLOOD NEGATIVE (NEGATIVE); URINE COLOR YELLOW; URINE GLUCOSE (UA) NEGATIVE (NEGATIVE); URINE KETONE NEGATIVE (NEGATIVE); URINE LEUKOCYTE ESTERASE NEGATIVE (NEGATIVE); URINE NITRITE NEGATIVE (NEGATIVE)
[2018-04-15] MEDS ORDERED: ZINC OXIDE 28.35 GM TUBE TOP ONE (06:33)
[2018-04-15] MEDS ORDERED: ZINC OXIDE 28.35 GM TUBE TOP PRN (06:37)
[2018-04-15] MEDS ORDERED: PANTOPRAZOLE SODIUM 40 MG TABLET PO SCH (07:00)
[2018-04-15] MEDS ORDERED: LEVOTHYROXINE SODIUM 150 MCG TABLET PO SCH (07:00)
[2018-04-15 07:20] LABS: HEMATOCRIT 29.9 % (42.0-52.0); HEMOGLOBIN 9.6 gm/dl (14.0-18.0); MEAN CELL VOLUME 78.5 fl (81-97); MEAN CORPUSCULAR HGB CONC 32.1 g/dl (32-36); MEAN PLATELET VOLUME 8.9 fl (7.4-10.4); PLATELET COUNT 359 K/uL (130-400); RED BLOOD COUNT 3.81 M/uL (4.40-5.70); RED CELL DISTRIBUTION WIDTH 17.6 % (11.5-14.5); WHITE BLOOD COUNT W/O DIFF 4.6 K/uL (4.2-12.2)
[2018-04-15 07:23] LABS: MEAN CORPUSCULAR HEMOGLOBIN 25.1 pg (27-33)
[2018-04-15 08:03] LABS: ANISOCYTOSIS 1+
[2018-04-15 08:04] LABS: PLATELET ESTIMATE NORMAL (NORMAL)
[2018-04-15] MEDS ORDERED: AMLODIPINE BESYLATE 5MG TAB PO SCH (10:00)
--- NOTE | 2018-04-15 11:22 | History & Physical ---
History of Present Illness - Date of Service Date of Service for History & Physical: 04/15/18 - History of Present Illness Admitting Diagnosis: acute anemia, vomiting, weakness History of Present Illness: Mr. Erickson is a 73 year old male with myelodysplastic syndrome here for complaint of weakness which began about two days ago. The patient also notes dry heaving and mild shortness of breath. He says that he last had his blood drawn on Sunday and his hemoglobin was around 7.5 which he says it usually around 7-8. He says that he received a blood transfusion about 3 months ago and has also had iron infusions due to anemia. On admission the patient was administered 3 units of irradiated whole blood and repeat Hb this morning is 9.6gm/dL. No active bleed has been identified and the patient does not report any bloody bowel movements. No fecal occult testing has been done. On examination this morning the patient reports feeling much better and is no longer weak or short of breath. He is awake, alert, oriented and in no acute distress. PCP: Dr. Penaloza. Travel Screening - Travel/Exposure Within Last 30 Days Have you traveled within the last 30 days?: No - Travel/Exposure Within Last Year Have you traveled outside the [place] in the last year?: No - Additonal Travel Details Have you been exposed to anyone with a communicable illness?: No - Travel Symptoms Symptom Screening: Joint & Muscle Aches, Weakness, Fatigue, Lack of Appetite Review of Systems Constitutional: Reports: As per HPI, Malaise, Weakness. Denies: Chills, Fever, Night sweats, Weight change Eyes: Reports: As per HPI. Denies: Eye discharge, Eye pain, Photophobia, Vision change ENT: Reports: As per HPI. Denies: Congestion, Dental pain, Ear pain, Epistaxis , Hearing loss, Throat pain Respiratory: Reports: As per HPI. Denies: Cough, Dyspnea, Hemoptysis, Stridor, Wheezes Cardiovascular: Reports: As per HPI. Denies: Arrhythmia, Chest pain, Dyspnea on exertion, Edema, Murmurs, Orthopnea, Palpitations, Paroxysmal nocturnal dyspnea, Rheumatic Fever, Syncope Endocrine: Reports: As per HPI. Denies: Fatigue, Heat or cold intolerance, Polydipsia, Polyuria Gastrointestinal: Reports: As per HPI, Nausea, Vomiting. Denies: Abdominal pain , Constipation, Diarrhea, Hematemesis, Hematochezia, Melena Genitourinary: Reports: As per HPI. Denies: Dysuria, Frequency, Hematuria, Incontinence, Retention, Testicular pain, Testicular mass, Urgency Musculoskeletal: Reports: As per HPI. Denies: Arthralgia, Back pain, Gout, Joint swelling, Myalgia, Neck pain Skin: Reports: As per HPI. Denies: Bruising, Change in color, Change in hair/ nails, Lesions, Pruritus, Rash Neurological: Reports: As per HPI. Denies: Abnormal gait, Confusion, Headache, Numbness, Paresthesias, Seizure, Tingling, Tremors, Vertigo, Weakness Psychiatric: Reports: As per HPI. Denies: Anxiety, Auditory hallucinations, Depression, Homicidal thoughts, Suicidal thoughts, Visual hallucinations Hematological/Lymphatic: Reports: As per HPI, Anemia. Denies: Blood Clots, Easy bleeding, Easy bruising, Swollen glands Past Medical History - SOCIAL HISTORY Smoking Status: Former smoker Alcohol Use: None Drug Use: None - RESPIRATORY Hx Respiratory Disorders: No Comment:: some SOB in past - CARDIOVASCULAR Hx Cardio Disorders: Yes Hx Cardiac Cath: Yes (4 cardiac stents) Hx Chest Pain: Yes Hx Deep Vein Thrombosis: Yes (8 stents in BLE) Hx Heart Attack: Yes - NEURO Hx Neuro Disorders: Yes Hx Dizziness: Yes - GI Hx GI Disorders: Yes Hx Reflux: Yes Hx Wt Loss/Wt Gain: Yes (60lb loss /past 6 months) Comment:: constipation, possible iggy problems - Hx Genitourinary Disorders: No - ENDOCRINE Hx Endocrine Disorders: Yes Hx Diabetes: Yes - MUSCULOSKELETAL Hx Musculoskeletal Disorders: No Hx Arthritis: Yes - PSYCH Hx Psych Problems: No Hx Depression: Yes (due to illness) Comment:: frustrated with not knowing where his blood is going - HEMATOLOGY/ONCOLOGY Hx Hematology/Oncology Disorders: Yes 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) Hx Cancer: Yes (bone marrow disease) Family Medical History Any Significant Family History?: No Hx Cancer: Mother Hx Diabetes: Mother Hx Heart Disease: Mother Hx HTN: Mother H&P Meds/Allergies - Allergies Allergies: Allergies Allergy/AdvReac Type Severity Reaction Status Date / Time No Known Drug Allergies Allergy Verified 04/14/18 12:02 - Home Medications Home Medications Medication Instructions Recorded Confirmed Last Taken Amlodipine Besylate [Norvasc] 5 mg PO DAILY 04/14/18 04/14/18 Unknown Previous Rx's Medication Instructions Recorded Polyethylene Glycol 3350 [Miralax] 1 packet PO DAILY #30 packet 04/30/16 Simvastatin [Zocor] 80 mg PO QHS tablet 08/26/16 - Active Medications Active Medications: Current Medications Acetaminophen (Tylenol 325mg) 650 mg PO Q6H PRN PRN Reason: PAIN - MILD(1-4)/FEVER Amlodipine Besylate (Norvasc) 5 mg PO DAILY [facility] Furosemide (Lasix Iv) 20 mg IVP .AFTER PRBC INFUSED [facility] Last Admin: 04/15/18 00:47 Dose: 20 mg Levothyroxine Sodium (Synthroid) 150 mcg PO DAILYAC [facility] Last Admin: 04/15/18 06:31 Dose: 150 mcg Metoprolol Tartrate (Lopressor) 25 mg PO BID [facility] Last Admin: 04/14/18 21:39 Dose: 25 mg Nitroglycerin (Nitrostat 0.4mg) 0.4 mg SL ASDIR PRN PRN Reason: Chest Pain Ondansetron HCl (Zofran) 4 mg IVP Q6H PRN PRN Reason: NAUSEA Pantoprazole Sodium (Protonix) 40 mg PO DAILYAC [facility] Last Admin: 04/15/18 06:31 Dose: 40 mg Simvastatin (Zocor) 80 mg PO QHS [facility] Last Admin: 04/14/18 21:35 Dose: 80 mg Zinc Oxide (Desitin) 28.35 gm TOP ASDIR PRN PRN Reason: RASH Physical Exam - Vital Signs Vital Signs: Vital Signs - Last 24 Hrs Temp Pulse Pulse Resp BP BP Pulse Ox 04/15/18 07:57 98.1 F 68 18 144/76 96 04/15/18 06:00 97.9 F 81 18 151/88 95 04/15/18 00:23 98.1 F 64 18 131/60 99 04/14/18 22:00 98.1 F 79 16 131/66 100 04/14/18 21:00 16 04/14/18 18:00 97.9 F 79 18 116/61 100 04/14/18 17:10 72 16 04/14/18 15:50 97.9 F 72 18 131/62 96 04/14/18 15:35 85 16 112/61 95 04/14/18 15:10 88 16 121/58 95 04/14/18 14:09 77 16 106/57 97 04/14/18 11:51 97.6 F 73 16 124/79 93 L - General General Appearance: Alert, Oriented x3, Cooperative, Moderate distress Limitations: No limitations - Head Head exam: Normal inspection - Eye Eye exam: Normal appearance, PERRL, EOMI Pupils: Normal accommodation - ENT ENT exam: Normal exam, Mucous membranes moist, Normal external ear exam, Normal orophraynx Ear exam: Normal external inspection. negative: External canal tenderness Nasal Exam: Normal inspection. negative: Discharge, Sinus tenderness Mouth exam: Normal external inspection, Tongue normal Teeth exam: Normal inspection. negative: Dental caries Throat exam: Normal inspection. negative: Tonsillar erythema, Tonsillar exudate - Neck Neck exam: Normal inspection, Full ROM. negative: Tenderness - Respiratory Respiratory exam: Normal lung sounds bilaterally. negative: Respiratory distress - Cardiovascular Cardiovascular Exam: Regular rate, Normal rhythm, Normal heart sounds Peripheral Pulses: 3+: Radial (R), Radial (L), Dorsalis Pedis (R), Dorsalis Pedis (L) - GI/Abdominal GI/Abdominal exam: Soft, Normal bowel sounds. negative: Tenderness - Rectal Rectal exam: Deferred - exam: Deferred - Extremities Extremities exam: Normal inspection, Full ROM, Normal capillary refill. negative: Tenderness - Back Back exam: Reports: Normal inspection, Full ROM. Denies: Muscle spasm, Rash noted, Tenderness - Neurological Neurological exam: Alert, CN II-XII intact, Normal gait, Oriented X3 - Psychiatric Psychiatric exam: Normal affect, Normal mood - Skin Skin exam: Dry, Intact, Pallor Results - Labs Result Diagrams: 04/15/18 06:20 04/14/18 12:37 Labs Last 24 Hours: Laboratory Results - last 24 hr 04/14/18 04/14/18 04/14/18 12:37 12:37 12:37 WBC 2.8 L RBC 2.74 L Hgb 6.2 L* Hct 21.2 L MCV 77.4 L MCH 22.6 L MCHC 29.2 L RDW 19.2 H Plt Count 349 MPV 8.2 Neutrophils % 85.0 H Eosinophils % Not Reportable Basophils % Not Reportable Lymphocytes 13.0 L Monocytes 1.0 Platelet Estimate Normal Hypochromasia 2+ Anisocytosis 1+ Eosinophil Count 1.0 Sodium 131 L Potassium 3.5 Chloride 94 L Carbon Dioxide 23.0 Anion Gap 14.0 BUN 19 Creatinine 0.9 Estimated GFR > 60 POC Glucose Random Glucose 72 L Calcium 7.8 L Total Bilirubin 0.60 AST 7 L ALT < 5 Alkaline Phosphatase 62 NT-Pro-B Natriuret Pep 5215.00 H Total Protein 5.9 L Albumin 2.5 L Globulin 3.4 Albumin/Globulin Ratio 0.7 L Lipase 8 L Urine Color Urine Appearance Urine pH Ur Specific [place] Urine Protein Urine Glucose (UA) Urine Ketones Urine Blood Urine Nitrite Urine Bilirubin Urine Urobilinogen Ur Leukocyte Esterase ABO Group Rh Factor Antibody Screen Crossmatch 04/14/18 04/14/18 04/14/18 12:40 12:40 12:40 WBC RBC Hgb Hct MCV MCH MCHC RDW Plt Count MPV Neutrophils % Eosinophils % Basophils % Lymphocytes Monocytes Platelet Estimate Hypochromasia Anisocytosis Eosinophil Count Sodium Potassium Chloride Carbon Dioxide Anion Gap BUN Creatinine Estimated GFR POC Glucose Random Glucose Calcium Total Bilirubin AST ALT Alkaline Phosphatase NT-Pro-B Natriuret Pep Total Protein Albumin Globulin Albumin/Globulin Ratio Lipase Urine Color Urine Appearance Urine pH Ur Specific [place] Urine Protein Urine Glucose (UA) Urine Ketones Urine Blood Urine Nitrite Urine Bilirubin Urine Urobilinogen Ur Leukocyte Esterase ABO Group O Rh Factor Positive Antibody Screen Negative Crossmatch Yes Yes 04/14/18 04/14/18 04/14/18 12:40 17:00 22:00 WBC RBC Hgb Hct MCV MCH MCHC RDW Plt Count MPV Neutrophils % Eosinophils % Basophils % Lymphocytes Monocytes Platelet Estimate Hypochromasia Anisocytosis Eosinophil Count Sodium Potassium Chloride Carbon Dioxide Anion Gap BUN Creatinine Estimated GFR POC Glucose 70 71 Random Glucose Calcium Total Bilirubin AST ALT Alkaline Phosphatase NT-Pro-B Natriuret Pep Total Protein Albumin Globulin Albumin/Globulin Ratio Lipase Urine Color Urine Appearance Urine pH Ur Specific [place] Urine Protein Urine Glucose (UA) Urine Ketones Urine Blood Urine Nitrite Urine Bilirubin Urine Urobilinogen Ur Leukocyte Esterase ABO Group Rh Factor Antibody Screen Crossmatch Yes 04/15/18 04/15/18 04/15/18 02:54 06:20 07:32 WBC 4.6 RBC 3.81 L Hgb 9.6 L Hct 29.9 L MCV 78.5 L MCH 25.1 L MCHC 32.1 RDW 17.6 H Plt Count 359 MPV 8.9 Neutrophils % 93.0 H Eosinophils % Not Reportable Basophils % Not Reportable Lymphocytes 5.0 L Monocytes 1.0 Platelet Estimate Normal Hypochromasia Anisocytosis 1+ Eosinophil Count 1.0 Sodium Potassium Chloride Carbon Dioxide Anion Gap BUN Creatinine Estimated GFR POC Glucose 86 Random Glucose Calcium Total Bilirubin AST ALT Alkaline Phosphatase NT-Pro-B Natriuret Pep Total Protein Albumin Globulin Albumin/Globulin Ratio Lipase Urine Color Yellow Urine Appearance Clear Urine pH 6.0 Ur Specific [place] 1.025 Urine Protein 100 mg/dl H Urine Glucose (UA) Negative Urine Ketones Negative Urine Blood Negative Urine Nitrite Negative Urine Bilirubin Negative Urine Urobilinogen 2.0 H Ur Leukocyte Esterase Negative ABO Group Rh Factor Antibody Screen Crossmatch VTE H&P Assessment - Risk for VTE Risk for VTE: Yes Risk Level: Moderate Risk Assessment Date: 04/15/18 Risk Assessment Time: 11: VTE Orders Placed or Will Be Placed: No VTE Reason for No Prophylaxis: Not Indicated (hb 6.2) Plan - Inpatient Certification Inpatient Certification: Pt remained in observation. - Detailed Diagnosis and Plan (1) Acute anemia Current Visit: Yes Status: Acute Base Code: D64.9 - ANEMIA, UNSPECIFIED Comment: 04/15/18: - Hgb 6.2 --> 9.6, 04/10 (outpatient lab) 7.5. MCV 77.2 - no active bleed identfied. - recieved 3 units of irradiated whole blood as per ED. - repeat labs on Tuesday 04/17 as per Heme/Oncology (2) Myelodysplastic syndrome Current Visit: Yes Status: Acute Base Code: D46.9 - MYELODYSPLASTIC SYNDROME , UNSPECIFIED Comment: 04/15/18: - bicytopenia w/ RBCs and WBcs low. - pt to continue indolent course observation with CBC w/diff as ordered by Heme/ Oncology. - not currently on any immunosuppresive agents or granulocyte stimulating agents. (3) CAD (coronary artery disease) Current Visit: Yes Status: Acute Base Code: I25.10 - ATHSCL HEART DISEASE OF [place] CORONARY ARTERY W/O ANG PCTRS Comment: 04/15/18: - S/P CABG - on Metoprolol 25mg BID, Zocor 80mg QHS. (4) Venous thromboembolism (VTE) prophylaxis not indicated Current Visit: Yes Status: Acute Base Code: [id number] - Comment: 04/15/18: - hgb 6.2 on admission. Ambulate as tolerated and SCDs (5) Full code status Current Visit: Yes Status: Acute Base Code: Z78.9 - OTHER SPECIFIED HEALTH STATUS Comment: 04/15/18: - pt is full code on this admission.
[2018-04-15] MEDS: METOPROLOL TART 25 MG TABLET PO SCH (11:26)
--- NOTE | 2018-04-15 11:58 | Discharge Summary ---
Providers Discharge Summary Date: 04/15/18 Date of admission: 04/14/18 15:37 Attending physician: JULIA SCHULZ Primary care physician: LUCAS SNIDER D.O. Physical Exam - Vital Signs Vital Signs: Vital Signs - Last 24 Hrs Temp Pulse Pulse Resp BP BP Pulse Ox 04/15/18 11:22 97.8 F 87 113/66 100 04/15/18 10:51 98.1 F 144/76 04/15/18 09:00 68 18 04/15/18 07:57 98.1 F 68 18 144/76 96 04/15/18 06:00 97.9 F 81 18 151/88 95 04/15/18 00:23 98.1 F 64 18 131/60 99 04/14/18 22:00 98.1 F 79 16 131/66 100 04/14/18 21:00 16 04/14/18 18:00 97.9 F 79 18 116/61 100 04/14/18 17:10 72 16 04/14/18 15:50 97.9 F 72 18 131/62 96 04/14/18 15:35 85 16 112/61 95 04/14/18 15:10 88 16 121/58 95 04/14/18 14:09 77 16 106/57 97 - General General Appearance: Alert, Oriented x3, Cooperative, Moderate distress Limitations: No limitations - Head Head exam: Normal inspection - Eye Eye exam: Normal appearance, PERRL, EOMI Pupils: Normal accommodation - ENT ENT exam: Normal exam, Mucous membranes moist, Normal external ear exam, Normal orophraynx Ear exam: Normal external inspection. negative: External canal tenderness Nasal Exam: Normal inspection. negative: Discharge, Sinus tenderness Mouth exam: Normal external inspection, Tongue normal Teeth exam: Normal inspection. negative: Dental caries Throat exam: Normal inspection. negative: Tonsillar erythema, Tonsillar exudate - Neck Neck exam: Normal inspection, Full ROM. negative: Tenderness - Respiratory Respiratory exam: Normal lung sounds bilaterally. negative: Respiratory distress - Cardiovascular Cardiovascular Exam: Regular rate, Normal rhythm, Normal heart sounds Peripheral Pulses: 3+: Radial (R), Radial (L), Dorsalis Pedis (R), Dorsalis Pedis (L) - GI/Abdominal GI/Abdominal exam: Soft, Normal bowel sounds. negative: Tenderness - Rectal Rectal exam: Deferred - exam: Deferred - Extremities Extremities exam: Normal inspection, Full ROM, Normal capillary refill. negative: Tenderness - Back Back exam: Reports: Normal inspection, Full ROM. Denies: Muscle spasm, Rash noted, Tenderness - Neurological Neurological exam: Alert, CN II-XII intact, Normal gait, Oriented X3 - Psychiatric Psychiatric exam: Normal affect, Normal mood - Skin Skin exam: Dry, Intact, Pallor Hospitalization - Hospitalization Admission Diagnosis: acute anemia, vomiting, weakness - Problem List/Discharge Diagnosis (1) Acute anemia Current Visit: Yes Status: Acute Base Code: D64.9 - ANEMIA, UNSPECIFIED Comment: 04/15/18: - Hgb 6.2 --> 9.6, 04/10 (outpatient lab) 7.5. MCV 77.2 - no active bleed identfied. - recieved 3 units of irradiated whole blood as per ED. - repeat labs on Tuesday 04/17 as per Heme/Oncology (2) Myelodysplastic syndrome Current Visit: Yes Status: Acute Base Code: D46.9 - MYELODYSPLASTIC SYNDROME , UNSPECIFIED Comment: 04/15/18: - bicytopenia w/ RBCs and WBcs low. - pt to continue indolent course observation with CBC w/diff as ordered by Heme/ Oncology. - not currently on any immunosuppresive agents or granulocyte stimulating agents. (3) CAD (coronary artery disease) Current Visit: Yes Status: Acute Base Code: I25.10 - ATHSCL HEART DISEASE OF [place] CORONARY ARTERY W/O ANG PCTRS Comment: 04/15/18: - S/P CABG - on Metoprolol 25mg BID, Zocor 80mg QHS. (4) Venous thromboembolism (VTE) prophylaxis not indicated Current Visit: Yes Status: Acute Base Code: [id number] - Comment: 04/15/18: - hgb 6.2 on admission. Ambulate as tolerated and SCDs (5) Full code status Current Visit: Yes Status: Acute Base Code: Z78.9 - OTHER SPECIFIED HEALTH STATUS Comment: 04/15/18: - pt is full code on this admission. - Hospitalization Course Hospital Course: Mr. Erickson is a 73 year old male with myelodysplastic syndrome here for complaint of weakness which began about two days ago. The patient also notes dry heaving and mild shortness of breath. He says that he last had his blood drawn on Sunday and his hemoglobin was around 7.5 which he says it usually around 7-8. He says that he received a blood transfusion about 3 months ago and has also had iron infusions due to anemia. On admission the patient was administered 3 units of irradiated whole blood and repeat Hb this morning is 9.6gm/dL. No active bleed has been identified and the patient does not report any bloody bowel movements. No fecal occult testing has been done. On examination this morning the patient reports feeling much better and is no longer weak or short of breath. He is awake, alert, oriented and in no acute distress. Patient to follow up with Dr. Snider within [address] Mistry for her further management of his MDS. PCP: Dr. Snider. Abnormal Labs: Abnormal Lab Results 04/14/18 04/14/18 04/14/18 Range/Units 12:37 12:37 12:37 WBC 2.8 L (4.2-12.2) K/uL RBC 2.74 L (4.40-5.70) M/uL Hgb 6.2 L* (14.0-18.0) gm/dl Hct 21.2 L (42.0-52.0) % MCV 77.4 L (81-97) fl MCH 22.6 L (27-33) pg MCHC 29.2 L (32-36) g/dl RDW 19.2 H (11.5-14.5) % Neutrophils % 85.0 H (47-80) % Lymphocytes 13.0 L (16-45) % Sodium 131 L (136-145) mmol/L Chloride 94 L (98-107) mmol/L Random Glucose 72 L (74-109) mg/dL Calcium 7.8 L (8.8-10.2) mg/dL AST 7 L (10.0-50.0) U/L NT-Pro-B Natriuret Pep 5215.00 H (<125) pg/mL Total Protein 5.9 L (6.6-8.7) g/dL Albumin 2.5 L (4.0-5.0) g/dL Albumin/Globulin Ratio 0.7 L (1.1-1.8) Lipase 8 L (13-60) U/L Urine Protein (NEGATIVE) Urine Urobilinogen (0.20 - 1.00) E.U./dL 04/15/18 04/15/18 Range/Units 02:54 06:20 WBC (4.2-12.2) K/uL RBC 3.81 L (4.40-5.70) M/uL Hgb 9.6 L (14.0-18.0) gm/dl Hct 29.9 L (42.0-52.0) % MCV 78.5 L (81-97) fl MCH 25.1 L (27-33) pg MCHC (32-36) g/dl RDW 17.6 H (11.5-14.5) % Neutrophils % 93.0 H (47-80) % Lymphocytes 5.0 L (16-45) % Sodium (136-145) mmol/L Chloride (98-107) mmol/L Random Glucose (74-109) mg/dL Calcium (8.8-10.2) mg/dL AST (10.0-50.0) U/L NT-Pro-B Natriuret Pep (<125) pg/mL Total Protein (6.6-8.7) g/dL Albumin (4.0-5.0) g/dL Albumin/Globulin Ratio (1.1-1.8) Lipase (13-60) U/L Urine Protein 100 mg/dl H (NEGATIVE) Urine Urobilinogen 2.0 H (0.20 - 1.00) E.U./dL Condition at Discharge: (2) Stable Discharge Medications - Discharge Medications Home Medications: Ambulatory Orders Levothyroxine Sodium [Synthroid] 150 mcg PO DAILY 07/05/14 [Last Taken 08/17/17] Nitroglycerin [Nitrostat] 0.4 mg SL ASDIR PRN 12/01/14 [Last Taken 1 Day Ago ~] Pantoprazole Sodium [Protonix] 40 mg PO DAILY 12/01/14 [Last Taken 08/17/17] Polyethylene Glycol 3350 [Miralax] 1 packet PO DAILY #30 packet 04/30/16 [Last Taken 08/17/17] Metoprolol Tartrate 25 mg PO BID 08/25/16 [Last Taken 08/17/17] Simvastatin [Zocor] 80 mg PO QHS tablet 08/26/16 [Last Taken 08/16/17] Amlodipine Besylate [Norvasc] 5 mg PO DAILY 04/14/18 [Last Taken Unknown] Discharge Plan - Discharge Instructions Activity at Discharge: Resume Usual Activities As Tolerated Diet at Discharge: Diabetic Diet, Low Fat, Low Cholesterol Instructions: Anemia (DC), Blood Transfusion (DC) Additional Instructions: Follow up with Dr. Snidre and your oncologist Dr. Mistry. Have your weekly CBCs done as per schedule. If symptoms worsen return to the emergency department. Quality Measures - Quality Measures Quality Measures: Advance Directives, Coronary Artery Disease: Antiplatelet Therapy, Documentation of Current Medications in Medical Record, Elder Maltreatment Screen and Follow-Up Plan, Screening for High Blood Pressure and F/ U Documented - Current Medications Quality Measure: Measure #130: Documentation of Current Medications Documentation of Current Medications: <Current Medications Documented/Reviewed> [G8427] - Blood Pressure Screening Quality Measure: Screening for High Blood Pressure and Follow-Up Documented Does Patient Have Any of the Following: Active Dx of HTN Blood Pressure Classification: Hypertensive Reading Systolic Measurement: 144 Diastolic Measurement: 76 Screening for High Blood Pressure: Patient Exclusion, Hx of HTN [G9744] - Coronary Artery Disease Quality Measure: Measure #6: Coronary Artery Disease (CAD) Antiplatelet Therapy: Not Prescribed for Medical Reason [4086F with 1P] Medical Reason for NOT Prescribing Antiplatelet: Other Medical Reason (MDS with cytopenias ) - Advance Directives Quality Measure: Measure #47: Care Plan Advance Directives Established: No Advance Directives Information Provided To Patient: Already Provided Advance Directives on File: No Living Will: No Power of Web Mobile Designer: No Advance Care Planning: <Care Plan/Decision Maker Not Decided; Discussed & Documented> [1124F] - Elder Abuse Suspicion Index Screening: Elder Abuse Suspicion Index Screening Rely on people for bathing, dressing, shopping, banking, etc: Yes Prevented from getting food, clothes, medication, etc: No Made to feel shamed or threatened by someone: No Forced to sign papers or use money against will: No Feel afraid, touched in ways not wanted or hurt physically: No Poor eye contact, withdrawn, malnourished, cuts or bruises: No Screening Result: Negative result EASI Reference Information: Pineda DEGROOT, Gaurav C, Danny D, Nino Aguilar.Development and validation of a tool to assist physicians identification of elder abuse: The Elder Abuse Suspicion Index (EASI ). Journal of Elder Abuse and Neglect, 2008; 20 (3): 276-300. - Elder Maltreatment Screen Quality Measures: Elder Maltreatment Screen and Follow-Up Plan Elder Maltreatment Screen: <Negative, No Follow-Up Plan Required> [G8734]
--- NOTE | 2018-04-15 15:00 | Medical Records Consult ---
DATE OF CONSULTATION: 04/15/2018 REASON FOR CONSULTATION: Nausea and vomiting. REQUESTING PHYSICIAN: Wing Hines MD HISTORY OF PRESENT ILLNESS: The patient is a 73-year-old male who is well known to me. I have seen him on multiple occasions in the past for his gallbladder. He does have known cholelithiasis and a chronically thickened gallbladder wall. He also has underlying myelodysplastic syndrome for which he sees Dr. Mistry. He stated he had not eaten in a couple of days and felt very weak. Therefore, he was seen at [facility] ER. Here, workup was done that did show he was anemic at 6.2. He had no white count. His platelet count was normal. He was admitted and given a transfuse and feels very well today. He states that he has no further nausea or vomiting. He has no pain. He has been on a liquid diet which he has been tolerating well. He was recently admitted at [facility] where he did have a fairly extensive GI workup. He ended up with a dilated common bile duct; therefore, ERCP was attempted. They were unable to cannulate this. Therefore, followup endoscopic ultrasound was done which did show a thickened gallbladder wall with stones. They felt they saw a mass on his imaging but this was felt to be more likely just a large gallstone. Besides the weakness, otherwise he has felt well. PAST MEDICAL HISTORY: Significant for myelodysplastic syndrome, diabetes. PAST SURGICAL HISTORY: Cardiac stents. CURRENT MEDICATIONS: 1. Aspirin. 2. Antihypertensive which he does not recall the name. SOCIAL HISTORY: Denies any tobacco or alcohol usage. PHYSICAL EXAMINATION: VITAL SIGNS: Stable. He is afebrile. HEART: Regular. LUNGS: Clear. ABDOMEN: Soft, nontender, nondistended. He does have splenomegaly noted. EXTREMITIES: No trace of edema. IMPRESSION: Cholelithiasis with thickened gallbladder wall. Difficult to say whether this is truly chronic cholecystitis or does his underlying myelodysplastic syndrome play a role. PLAN: Due to the symptomatic nature, I would not recommend any surgical intervention. If acute cholecystitis is suspected, HIDA scan can be ordered but due to the lack of pain, I would hold at this time. If something changes, I gave a card to his who will call me shortly. Thank you for this referral. SADIQ
== END 2018-04-15 11:39 | disposition home or self-care (01) | DRG 812 ==
LOC: ER 11:45 → MEDSURG 15:37
PROVIDERS: ADMIT Internal Medicine; ATTEND Internal Medicine
DX: D64.9 Anemia, unspecified (principal); D46.9 Myelodysplastic syndrome, unspecified; I25.10 Atherosclerotic heart disease of native coronary artery without angina pectoris; R11.2 Nausea with vomiting, unspecified; I25.2 Old myocardial infarction; E11.9 Type 2 diabetes mellitus without complications; F32.9 Major depressive disorder, single episode, unspecified; K21.9 Gastro-esophageal reflux disease without esophagitis; M19.90 Unspecified osteoarthritis, unspecified site; Z95.5 Presence of coronary angioplasty implant and graft; Z95.1 Presence of aortocoronary bypass graft; Z87.891 Personal history of nicotine dependence; Z86.718 Personal history of other venous thrombosis and embolism; Z79.01 Long term (current) use of anticoagulants
CPT/HCPCS: 83690; 80053; 85027; 83880; 86900; 86901; 86850; J2405; 36416; 36430; 81003; 82948; 96374; 99223; 99285; J1940; J7030

== ENCOUNTER 2018-04-22 13:34 | Emergency (ER) | payer MEDICARE ==
[2018-04-22] MEDS ORDERED: ONDANSETRON HCL IV 4 MG/2 ML VIAL IV ONE (14:16)
--- NOTE | 2018-04-22 14:18 | Emergency Department Record ---
History of Present Illness - General Chief complaint: Weakness Stated complaint: WEAK,DRY HEAVES Time Seen by Provider: 04/22/18 14:15 Source: Patient, RN notes reviewed Mode of Arrival: Wheelchair - History of Present Illness Initial comments: Weak and history of myodysplastic disease and recently at [facility] and recieved 3 units of blood and hg up to 9.0 and dicharged from [facility] 7 days ago and oxygen levels decresed by pulse ox 88%. Seen by the cancer Dr on sunday. Redness on the bottom of the left foot and the right heel.Primary Dr is Dr Penaloza Onset/Timin -: Days(s) Location: Generalized Quality: Other Consistency: Constant Improves with: None Worsens with: None Context: Recent illness Associated Symptoms: Denies other symptoms - [place] Coma Scale Eye Response: (4) Open spontaneously - Related Data Previous Rx's Medication Instructions Recorded Polyethylene Glycol 3350 [Miralax] 1 packet PO DAILY #30 packet 04/30/16 Simvastatin [Zocor] 80 mg PO QHS tablet 08/26/16 Allergies Allergy/AdvReac Type Severity Reaction Status Date / Time No Known Drug Allergies Allergy Verified 04/14/18 12:02 Travel Screening - Travel/Exposure Within Last 30 Days Have you traveled within the last 30 days?: No Review of Systems Reviewed: No additional complaints except as noted below Constitutional: Reports: As per HPI. Denies: Chills, Fever, Malaise, Night sweats, Weakness, Weight change Eyes: Reports: As per HPI. Denies: Eye discharge, Eye pain, Photophobia, Vision change ENT: Reports: As per HPI. Denies: Congestion, Dental pain, Ear pain, Epistaxis , Hearing loss, Throat pain Respiratory: Reports: As per HPI. Denies: Cough, Dyspnea, Hemoptysis, Stridor, Wheezes Cardiovascular: Reports: As per HPI. Denies: Arrhythmia, Chest pain, Dyspnea on exertion, Edema, Murmurs, Orthopnea, Palpitations, Paroxysmal nocturnal dyspnea, Rheumatic Fever, Syncope Endocrine: Reports: As per HPI. Denies: Fatigue, Heat or cold intolerance, Polydipsia, Polyuria Gastrointestinal: Reports: As per HPI, Nausea, Vomiting. Denies: Abdominal pain , Constipation, Diarrhea, Hematemesis, Hematochezia, Melena Genitourinary: Reports: As per HPI. Denies: Dysuria, Frequency, Hematuria, Incontinence, Retention, Testicular pain, Testicular mass, Urgency Musculoskeletal: Reports: As per HPI. Denies: Arthralgia, Back pain, Gout, Joint swelling, Myalgia, Neck pain Skin: Reports: As per HPI. Denies: Bruising, Change in color, Change in hair/ nails, Lesions, Pruritus, Rash Neurological: Reports: As per HPI. Denies: Abnormal gait, Confusion, Headache, Numbness, Paresthesias, Seizure, Tingling, Tremors, Vertigo, Weakness Psychiatric: Reports: As per HPI. Denies: Anxiety, Auditory hallucinations, Depression, Homicidal thoughts, Suicidal thoughts, Visual hallucinations Hematological/Lymphatic: Reports: As per HPI. Denies: Anemia, Blood Clots, Easy bleeding, Easy bruising, Swollen glands Past Medical History - SOCIAL HISTORY Smoking Status: Former smoker Alcohol Use: None Drug Use: None - RESPIRATORY Hx Respiratory Disorders: No Comment:: some SOB in past - CARDIOVASCULAR Hx Cardio Disorders: Yes Hx Cardiac Cath: Yes (4 cardiac stents) Hx Chest Pain: Yes Hx Deep Vein Thrombosis: Yes (8 stents in BLE) Hx Heart Attack: Yes - NEURO Hx Neuro Disorders: Yes Hx Dizziness: Yes - GI Hx GI Disorders: Yes Hx Reflux: Yes Hx Wt Loss/Wt Gain: Yes (60lb loss /past 6 months) Comment:: constipation, possible iggy problems - Hx Genitourinary Disorders: No - ENDOCRINE Hx Endocrine Disorders: Yes Hx Diabetes: Yes - MUSCULOSKELETAL Hx Musculoskeletal Disorders: No Hx Arthritis: Yes - PSYCH Hx Psych Problems: No Hx Depression: Yes (due to illness) Comment:: frustrated with not knowing where his blood is going - HEMATOLOGY/ONCOLOGY Hx Hematology/Oncology Disorders: Yes 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 negative: External canal tenderness Nasal Exam: Normal inspection. negative: Discharge, Sinus tenderness Mouth exam: Normal external inspection, Tongue normal Teeth exam: Normal inspection. negative: Dental caries Throat exam: Normal inspection. negative: Tonsillar erythema, Tonsillar exudate - Neck Neck exam: Normal inspection, Full ROM. negative: Tenderness - Respiratory Respiratory exam: Normal lung sounds bilaterally. negative: Respiratory distress - Cardiovascular Cardiovascular Exam: Regular rate, Normal rhythm, Normal heart sounds - GI/Abdominal GI/Abdominal exam: Soft, Normal bowel sounds. negative: Tenderness - Rectal Rectal exam: Deferred - exam: Deferred - Extremities Extremities exam: Normal inspection, Full ROM, Normal capillary refill. negative: Tenderness - Back Back exam: Reports: Normal inspection, Full ROM. Denies: Muscle spasm, Rash noted, Tenderness - Neurological Neurological exam: Alert, Normal gait, Oriented X3, Reflexes normal - Psychiatric Psychiatric exam: Normal affect, Normal mood - Skin Skin exam: Dry, Intact, Normal color, Warm Course Vital Signs 04/22/18 13:48 Temperature 97.4 F L Pulse Rate 74 Respiratory 16 Rate Blood Pressure 134/59 - Reevaluation(s) Reevaluation #1: discussed DNR status and they don't want ventilation but they haven't decided on stopping CPR at this time. 04/22/18 15:29 Reevaluation #2: transfer to [facility] to Dr. Pierre 04/22/18 15:31 Medical Decision Making - Data Complexity MDM Data: Labs Ordered and/or Reviewed (hg 7.6), X-Ray Ordered and/or Reviewed ( right lower lobe infiltrate with pleural effusion) - Lab Data Result diagrams: 04/22/18 14:00 04/22/18 14:00 Disposition Clinical Impression: Myelodysplastic syndrome, Weakness, Cellulitis of both feet Anemia Qualifiers: Anemia type: unspecified type Qualified Code(s): D64.9 - Anemia, unspecified Pneumonia Qualifiers: Pneumonia type: due to unspecified organism Laterality: right Lung location: lower lobe of lung Qualified Code(s): J18.1 - Lobar pneumonia, unspecified organism Disposition: Acute Care Hospital Transfer Condition: (2) Stable Forms: Patient Portal Access Time of Disposition: 15:30 Quality - Quality Measures Quality Measures: N/A - Blood Pressure Screening Does Patient Have Any of the Following: No Blood Pressure Classification: Pre-Hypertensive BP Reading Systolic Measurement: 134 Diastolic Measurement: 59 Screening for High Blood Pressure: < Pre-Hypertensive BP, F/U Documented > [ G8950] Pre-Hypertensive Follow-up Interventions: Referral to alternative/primary care provider.
[2018-04-22 14:27] LABS: BASO % 0.3 % (0-6); EOS % 2.7 % (0-6); GRAN % 71.9 % (47-80); HEMATOCRIT 24.4 % (42.0-52.0); HEMOGLOBIN 7.6 gm/dl (14.0-18.0); LYMPH % 20.6 % (16-45); MEAN CELL VOLUME 78.2 fl (81-97); MEAN CORPUSCULAR HGB CONC 31.1 g/dl (32-36); MONO % 4.5 % (0-9); PLATELET COUNT 324 K/uL (130-400); RED BLOOD COUNT 3.12 M/uL (4.40-5.70); RED CELL DISTRIBUTION WIDTH 19.8 % (11.5-14.5); WHITE BLOOD COUNT W/O DIFF 2.9 K/uL (4.2-12.2)
[2018-04-22 14:30] LABS: MEAN CORPUSCULAR HEMOGLOBIN 24.3 pg (27-33)
[2018-04-22 14:39] LABS: BLOOD UREA NITROGEN 25 mg/dL (8-23); EST GLOMERULAR FILTRATION RATE > 60 mL/min
[2018-04-22 14:40] LABS: TOTAL PROTEIN 6.7 g/dL (6.6-8.7)
[2018-04-22 14:42] LABS: GLUCOSE,RANDOM 83 mg/dL (74-109)
[2018-04-22 14:44] LABS: ALT/SGPT < 5 U/L (<41)
[2018-04-22 14:45] LABS: ALBUMIN 2.6 g/dL (4.0-5.0); ALKALINE PHOSPHATASE 64 U/L (40-129); AST/SGOT 7 U/L (10.0-50.0); BILIRUBIN,DIRECT 0.4 mg/dL (0-0.3)
[2018-04-22] MEDS ORDERED: CEFTRIAXONE SODIUM 1 GM in 0.9 % SODIUM CHLORIDE 100ML 100 ML IVPB ONE (15:23)
--- NOTE | 2018-04-24 14:12 | RADIOLOGY REPORT ---
EXAM: PORTABLE CHEST HISTORY: WEAKNESS FOR THE PAST FEW DAYS. LOW HEMOGLOBIN. COUGH. TECHNIQUE: A portable view of the chest was obtained. FINDINGS: The patient is status post median sternotomy. The heart, mediastinum , and pulmonary vasculature are normal. There is mild focal infiltrate at the right lower lobe suggesting developing pneumonia. A tiny right pleural effusion is also present. The left lung is clear. The bones appear intact. IMPRESSION: 1. MILD RIGHT BASILAR INFILTRATE SUGGESTING DEVELOPING PNEUMONIA. 2. TINY RIGHT PLEURAL EFFUSION. JOB NUMBER: [id number] [facility]
== END 2018-04-22 17:42 | disposition short-term general hospital (02) ==
LOC: ER 13:34
DX: J18.1 Lobar pneumonia, unspecified organism (principal); D46.9 Myelodysplastic syndrome, unspecified; D64.9 Anemia, unspecified; L03.116 Cellulitis of left lower limb; L03.115 Cellulitis of right lower limb; R53.1 Weakness; Z87.891 Personal history of nicotine dependence; E11.9 Type 2 diabetes mellitus without complications; I25.2 Old myocardial infarction
CPT/HCPCS: 99285 ×2; 96365; 96375; 85025; 80076; 80048; 71045; 93005; 93010; J2405